=== PATIENT | male | born 1950 | race Caucasian/White ===

== ENCOUNTER 2018-06-17 07:00 | Emergency (ER) | payer MEDICARE, MEDICAID, SELFPAY ==
--- NOTE | 2018-06-17 07:24 | ED.CHESTPAIN ---
HPI - Chest Pain General Chief Complaint: Chest Pain Stated Complaint: nausea, stomach pain, shakiness Time Seen by Provider: 06/17/18 07:24 Related Data Allergies Allergy/AdvReac Type Severity Reaction Status Date / Time No Known Drug Allergies Allergy Unverified 06/17/18 07:20 [facility] Surgical History Status post amputation of extremity Social History Smoking Status: Current some day smoker alcohol intake: current Course Orders Ordered: ED Orders 06/17/18 EKG-12 Lead Stat EKG-12 Lead Stat
[2018-06-17 07:54] VITALS: BP 179/106; PULSE 68; RESP 18; TEMP 36.7; O2SAT 96
--- NOTE | 2018-06-17 08:02 | ED_ITS ---
HPI - Abdominal Pain General Chief Complaint: Abdominal Pain Stated Complaint: nausea, stomach pain, shakiness Time Seen by Provider: 06/17/18 07:24 Source: patient Mode of arrival: ambulatory Limitations: no limitations History of Present Illness HPI narrative: Patient is a 68-year-old male who presents with all lower left abdominal pain which started early this morning. He says that he has a hernia in his left abdomen area. No previous surgeries. He also states that this feels similar to previous diverticulitis attacks. She had a normal bowel movement last night he has no nausea no vomiting or fevers. He has no painful frequent urination no hematuria no flank pain. MD complaint: abdominal pain Related Data Previous Rx's Medication Instructions Recorded ciprofloxacin HCl [Cipro] 500 mg PO BID #14 tab 06/17/18 metronidazole [Flagyl] 500 mg PO TID #21 tab 06/17/18 Allergies Allergy/AdvReac Type Severity Reaction Status Date / Time No Known Drug Allergies Allergy Unverified 06/17/18 07:20 Review of Systems Review of Systems GENERAL: Denies chills, fatigue, malaise, fever, sweats, travel HEENT: Denies sinus pain, ear pain, sore throat, difficulty swallowing, neck pain RESPIRATORY: Denies dyspnea, cough, wheezing, hemoptysis, sputum. CARDIOVASCULAR: Denies chest pain, palpitations, orthopnea, edema GASTROINTESTINAL: See HPI : Denies dysuria, frequency, incontinence, hematuria, urinary retention, flank pain. MUSCULOSKELETAL: Denies weakness, joint pain, or bony pain SKIN: No rash, no erythema, no pruritus NEUROLOGIC: Denies weakness, dizziness, headache, numbness, change in speech, confusion 12 point review of systems is negative except for those stated above and HPI PFSH Medical History Diverticulitis (Acute) GERD (gastroesophageal reflux disease) (Acute) Surgical History Status post amputation of extremity Social History Smoking Status: Current some day smoker alcohol intake: current Exam Initial Vital Signs Initial Vital Signs: Vital Signs Temperature 98.1 F 06/17/18 07:54 Pulse Rate 68 06/17/18 07:54 Respiratory Rate 18 06/17/18 07:54 Blood Pressure 179/106 H 06/17/18 07:54 Pulse Oximetry 96 06/17/18 07:54 GENERAL: Well-appearing, well-nourished and in no acute distress. HEENT: Head atraumatic,EOMI, pupils reactive, face symmetric, moist mucous membranes CARDIOVASCULAR: Regular rate and rhythm without murmurs, rubs or gallops. RESPIRATORY: Breath sounds equal bilaterally, no wheezes rales or rhonchi. ABDOMEN: Soft, mild lower abdominal tenderness without guarding or rebound, no surgical scars no appreciated hernia no inguinal hernia : No CVA tenderness EXTREMITIES: Normal range of motion, no clubbing or edema. Neurovascularly intact NEUROLOGICAL: Alert and oriented x4.Normal gait and speech. Cranial nerves II through XII grossly intact. Good [id number], good [id number], strength equal bilaterally, no dysarthria or aphasia, sensation in tact to soft touch bilaterally, no visual changes, no facial droop SKIN: Warm, dry, no laceration, no petechiae, no rashes or lesions. Course Orders Ordered: ED Orders 06/17/18 08:00 Complete Blood Count AUTO DIFF Stat Comprehensive Metabolic Panel Stat Lipase Stat 06/17/18 08:41 CT abdomen pelvis w con Stat Discontinued Medications Adenosine (Adenocard) 6 mg IV NOW ONE Stop: 06/17/18 07:23 Sodium Chloride (Normal Saline 0.9%) 1,000 mls @ 1,000 mls/hr IV BOLUS ONE Stop: 06/17/18 08:21 Sodium Chloride (Normal Saline 0.9%) 1,000 mls @ 150 mls/hr IV CONT EUNICE Sodium Chloride (Normal Saline 0.9%) 1,000 mls @ 1,000 mls/hr IV CONT EUNICE Last Admin: 06/17/18 08:18 Dose: 1,000 mls/hr Vital Signs - 8 hr 06/17/18 07:54 06/17/18 10:14 Temperature 98.1 F Pulse Rate 68 72 Respiratory Rate 18 13 Blood Pressure 179/106 H 180/110 H Pulse Oximetry 96 MDM - Abdominal Pain Lab Data Attestation: I reviewed the patient's lab results. Result diagrams: 06/17/18 08:00 06/17/18 08:00 Lab Results 06/17/18 06/17/18 Range/Units 08:00 08:00 WBC 9.0 (4.5-11.0) X10^3/uL RBC 4.69 (4.5-5.9) X10^6/uL Hgb 16.5 (13.5-17.5) g/dL Hct 45.1 (41-53) % MCV 96.0 (80-100) fL MCH 35.1 H (26-34) PG MCHC 36.6 H (30-36) % RDW 12.5 (11.6-14.8) % Plt Count 197 (150-400) X10^3/uL Neut % (Auto) 78.3 H (50-75) % Lymph % (Auto) 14.4 L (25-40) % [place] % (Auto) 5.6 (3-14) % Eos % (Auto) 0.8 L (2-4) % Baso % (Auto) 0.9 (0-2) % Neut # (Auto) 7000 H (6402-9573) /uL Sodium 141 (137-145) mmol/L Potassium 4.5 (3.4-5.1) mmol/L Chloride 105 (98-107) mmol/L Carbon Dioxide 27 (22-32) mmol/L BUN 16 (9-20) mg/dL Creatinine 0.90 (0.66-1.25) mg/dL Estimated GFR > 60.0 (>60) mL/min BUN/Creatinine Ratio 17.8 (6-22) Glucose 107 (80-110) mg/dL Calcium 9.4 (8.4-10.2) mg/dL Total Bilirubin 0.7 (0.2-1.3) mg/dL AST 18 (17-59) IU/L ALT 24 (21-72) IU/L Alkaline Phosphatase 68 (38-126) U/L Total Protein 7.2 (6.3-8.2) g/dL Albumin 4.2 (3.5-5.0) g/dL Globulin 3.0 (1.7-4.1) g/dL Albumin/Globulin Ratio 1.4 (1.0-2.8) Lipase 25 (23-300) U/L Point of care testing: Urine Dip Bedside Urine Glucose Negative Bedside Urine Bilirubin - Negative Bedside Urine Ketone - Negative Urine Specific [place] 1.020 Bedside Urine Occult Blood - Negative Bedside Urine pH 6.0 Bedside Urine Protein + 30 Bedside Urine Urobilinogen - Negative Bedside Urine Nitrite - Negative Bedside Urine Leukocytes - Negative Esterase Imaging Data CT scan - abdomen: Radiologist's impression: [address] [address] [address] Scan Report Signed Patient: Anthony Mckeon MR#: [id number] : 1950 Acct:[id number] Age/Sex: 68 / M Date of Service: 06/17/18 Loc: ED Accession Number: [id number] Procedure: CT abdomen pelvis w con Ordering Provider: Rosario Vick D.O. PROCEDURE: CT ABDOMEN PELVIS W CON INDICATIONS: Low abdominal pain x several days TECHNIQUE: After the administration of intravenous contrast, 5 mm thick sections acquired from the diaphragm to the symphysis. 5 mm coronal and sagittal reformats were acquired. For radiation dose reduction, the following was used: automated exposure control, adjustment of mA and/or kV according to patient size. COMPARISON: [facility], CT, ABDOMEN/PELVIS WITH CONTRAST, 08/16/2016, 12: 41. [facility], CT, ABDOMEN/PELVIS WITH CONTRAST, 10/07/2011, 5:05. FINDINGS: Image quality: Excellent. ABDOMEN: Lung bases: Lung bases are clear. Heart size is normal. Solid organs: Liver is normal in size and enhancement, and the liver appears diffusely fatty infiltrated. Gallbladder appears normal. Biliary system is non dilated. Pancreas enhances normally. Spleen is normal in size and enhancement. No adrenal nodules. Kidneys demonstrate normal size and enhancement, without hydronephrosis. Peritoneum and bowel: Bowel loops demonstrate normal wall thickness and caliber. No free fluid or air. Nodes and vessels: No retroperitoneal or mesenteric adenopathy by size criteria. Aorta and inferior vena cava are normal in size. Miscellaneous: No ventral hernias. PELVIS: Genitourinary: Bladder wall thickness is normal. Miscellaneous: No inguinal hernias or adenopathy. Extensive sigmoid diverticulosis, and there is a small degree of edema along the lateral border of the posterior half of the sigmoid colon indicating likelihood of mild acute diverticulitis without peridiverticular abscess.. Bones: No suspicious bony lesions. No vertebral body compression fractures. IMPRESSION: Subtle finding of mild edema along the posterior lateral border of the sigmoid colon where extensive diverticulosis is present and mild acute diverticulitis is suspected, without peridiverticular abscess. Fatty infiltration prominent throughout the liver. No biliary distention or gallstones found. Dictated by: Mark Pavon M.D. on 06/17/2018 at 8:54 Discharge Plan Departure Patient Disposition: Home Clinical Impression: Diverticulitis Discharge Date/Time: 06/17/18 10:16 Interventions: ED Discharge Assessment Last Done: 06/17/18 10:14 Instructions: Diverticulitis Activity Restrictions/Additional Instructions: *You have been diagnosed with diverticulitis *What to do: Recommend gentle diet or clear liquid diet for the next off 1-2 days *Continue to take medications as directed-medications have been faxed to [facility] at your request Cipro 500 mg twice a day for 1 week FLAGYL 500 MG 3 TIMES A DAY FOR 1 WEEK Take Tylenol and/or Motrin as needed as directed for pain *Follow up with your primary care provider in 2-3 days *Return to ER if you should have increasing pain, fever or any new, worsening or concerning symptoms Prescriptions: New metronidazole [Flagyl] 500 mg tablet 500 mg PO TID Qty: 21 RF: 0 ciprofloxacin HCl [Cipro] 500 mg tablet 500 mg PO BID Qty: 14 RF: 0
[2018-06-17] MEDS: SODIUM CHLORIDE 0.9% 1,000 ML 1000 ML IV (08:18)
[2018-06-17 08:29] LABS: Alanine Aminotransferase 24 IU/L (21-72); Albumin 4.2 g/dL (3.5-5.0); Albumin Globulin Ratio 1.4 (1.0-2.8); Alkaline Phosphatase 68 U/L (38-126); Aspartate Aminotransferase 18 IU/L (17-59); BUN Creatinine Ratio 17.8 (6-22); Bilirubin Total 0.7 mg/dL (0.2-1.3); Blood Urea Nitrogen 16 mg/dL (9-20); Calcium 9.4 mg/dL (8.4-10.2); Carbon Dioxide 27 mmol/L (22-32); Chloride 105 mmol/L (98-107); Estimated Glomerular Filt Rate > 60.0 mL/min (>60); Glucose 107 mg/dL (80-110); HEMOLYSIS < 15 (0-50); Lipase 25 U/L (23-300); Potassium 4.5 mmol/L (3.4-5.1); Sodium 141 mmol/L (137-145); Total Protein 7.2 g/dL (6.3-8.2)
[2018-06-17 08:33] LABS: Add Manual Diff / Slide Review NO; Basophils Percent Auto 0.9 % (0-2); Eosinophils Percent Auto 0.8 % (2-4); Hematocrit 45.1 % (41-53); Hemoglobin 16.5 g/dL (13.5-17.5); Lymphocytes Percent Auto 14.4 % (25-40); Mean Corpuscular HGB Conc 36.6 % (30-36); Mean Corpuscular Hemoglobin 35.1 PG (26-34); Monocytes Percent Auto 5.6 % (3-14); Neutrophils Absolute Auto 7000 /uL (3000-5900); Neutrophils Percent Auto 78.3 % (50-75); Platelet Count 197 X10^3/uL (150-400); Red Blood Cell Count 4.69 X10^6/uL (4.5-5.9); Red Cell Distribution Width 12.5 % (11.6-14.8)
--- NOTE | 2018-06-17 08:41 | DI.CT.S_ITS ---
PROCEDURE: CT ABDOMEN PELVIS W CON INDICATIONS: Low abdominal pain x several days TECHNIQUE: After the administration of intravenous contrast, 5 mm thick sections acquired from the diaphragm to the symphysis. 5 mm coronal and sagittal reformats were acquired. For radiation dose reduction, the following was used: automated exposure control, adjustment of mA and/or kV according to patient size. COMPARISON: [facility], CT, ABDOMEN/PELVIS WITH CONTRAST, 08/16/2016, 12:41. [facility], CT, ABDOMEN/PELVIS WITH CONTRAST, 10/07/2011, 5:05. FINDINGS: Image quality: Excellent. ABDOMEN: Lung bases: Lung bases are clear. Heart size is normal. Solid organs: Liver is normal in size and enhancement, and the liver appears diffusely fatty infiltrated. Gallbladder appears normal. Biliary system is non dilated. Pancreas enhances normally. Spleen is normal in size and enhancement. No adrenal nodules. Kidneys demonstrate normal size and enhancement, without hydronephrosis. Peritoneum and bowel: Bowel loops demonstrate normal wall thickness and caliber. No free fluid or air. Nodes and vessels: No retroperitoneal or mesenteric adenopathy by size criteria. Aorta and inferior vena cava are normal in size. Miscellaneous: No ventral hernias. PELVIS: Genitourinary: Bladder wall thickness is normal. Miscellaneous: No inguinal hernias or adenopathy. Extensive sigmoid diverticulosis, and there is a small degree of edema along the lateral border of the posterior half of the sigmoid colon indicating likelihood of mild acute diverticulitis without peridiverticular abscess.. Bones: No suspicious bony lesions. No vertebral body compression fractures. IMPRESSION: Subtle finding of mild edema along the posterior lateral border of the sigmoid colon where extensive diverticulosis is present and mild acute diverticulitis is suspected, without peridiverticular abscess. Fatty infiltration prominent throughout the liver. No biliary distention or gallstones found. Dictated by: Mark Pavon M.D. on 06/17/2018 at 8:54 Approved by: Mark Pavon M.D. on 06/17/2018 at 8:57
--- NOTE | 2018-06-17 08:57 | ED.ABDPAIN ---
HPI - Abdominal Pain General Chief Complaint: Abdominal Pain Stated Complaint: nausea, stomach pain, shakiness Time Seen by Provider: 06/17/18 07:24 Related Data Home Medications Medication Instructions Recorded Confirmed No Known Home Medications 06/17/18 06/17/18 Allergies Allergy/AdvReac Type Severity Reaction Status Date / Time No Known Drug Allergies Allergy Unverified 06/17/18 07:20 PFSH Surgical History Status post amputation of extremity Social History Smoking Status: Current some day smoker alcohol intake: current Exam Narrative Exam Narrative: Initial Vital Signs Initial Vital Signs: Vital Signs Temperature 98.1 F 06/17/18 07:54 Pulse Rate 68 06/17/18 07:54 Respiratory Rate 18 06/17/18 07:54 Blood Pressure 179/106 H 06/17/18 07:54 Pulse Oximetry 96 06/17/18 07:54 Const General: cooperative Course Orders Ordered: ED Orders 06/17/18 EKG-12 Lead Stat EKG-12 Lead Stat 06/17/18 08:00 Complete Blood Count AUTO DIFF Stat Comprehensive Metabolic Panel Stat Lipase Stat 06/17/18 08:41 CT abdomen pelvis w con Stat Sodium Chloride (Normal Saline 0.9%) 1,000 mls @ 1,000 mls/hr IV CONT EUNICE Last Admin: 06/17/18 08:18 Dose: 1,000 mls/hr Discontinued Medications Adenosine (Adenocard) 6 mg IV NOW ONE Stop: 06/17/18 07:23 Sodium Chloride (Normal Saline 0.9%) 1,000 mls @ 1,000 mls/hr IV BOLUS ONE Stop: 06/17/18 08:21 Sodium Chloride (Normal Saline 0.9%) 1,000 mls @ 150 mls/hr IV CONT EUNICE Vital Signs - 8 hr 06/17/18 07:54 Temperature 98.1 F Pulse Rate 68 Respiratory Rate 18 Blood Pressure 179/106 H Pulse Oximetry 96 MDM - Abdominal Pain Lab Data Result diagrams: 06/17/18 08:00 06/17/18 08:00 Lab Results 06/17/18 06/17/18 Range/Units 08:00 08:00 WBC 9.0 (4.5-11.0) X10^3/uL RBC 4.69 (4.5-5.9) X10^6/uL Hgb 16.5 (13.5-17.5) g/dL Hct 45.1 (41-53) % MCV 96.0 (80-100) fL MCH 35.1 H (26-34) PG MCHC 36.6 H (30-36) % RDW 12.5 (11.6-14.8) % Plt Count 197 (150-400) X10^3/uL Neut % (Auto) 78.3 H (50-75) % Lymph % (Auto) 14.4 L (25-40) % [place] % (Auto) 5.6 (3-14) % Eos % (Auto) 0.8 L (2-4) % Baso % (Auto) 0.9 (0-2) % Neut # (Auto) 7000 H (3278-1168) /uL Sodium 141 (137-145) mmol/L Potassium 4.5 (3.4-5.1) mmol/L Chloride 105 (98-107) mmol/L Carbon Dioxide 27 (22-32) mmol/L BUN 16 (9-20) mg/dL Creatinine 0.90 (0.66-1.25) mg/dL Estimated GFR > 60.0 (>60) mL/min BUN/Creatinine Ratio 17.8 (6-22) Glucose 107 (80-110) mg/dL Calcium 9.4 (8.4-10.2) mg/dL Total Bilirubin 0.7 (0.2-1.3) mg/dL AST 18 (17-59) IU/L ALT 24 (21-72) IU/L Alkaline Phosphatase 68 (38-126) U/L Total Protein 7.2 (6.3-8.2) g/dL Albumin 4.2 (3.5-5.0) g/dL Globulin 3.0 (1.7-4.1) g/dL Albumin/Globulin Ratio 1.4 (1.0-2.8) Lipase 25 (23-300) U/L Point of care testing: Urine Dip Bedside Urine Glucose Negative Bedside Urine Bilirubin - Negative Bedside Urine Ketone - Negative Urine Specific [place] 1.020 Bedside Urine Occult Blood - Negative Bedside Urine pH 6.0 Bedside Urine Protein + 30 Bedside Urine Urobilinogen - Negative Bedside Urine Nitrite - Negative Bedside Urine Leukocytes - Negative Esterase Discharge Plan Departure Prescriptions: No Action No Known Home Medications RF: 0
[2018-06-17 10:14] VITALS: BP 180/110; PULSE 72; RESP 13
--- NOTE | 2018-08-05 13:09 | PC.NURSE ---
pt dc at 1014, iv dc'd and 1000cc fluids infused. (late entry)
== END 2018-06-17 10:16 | disposition home or self-care (01) ==
PROVIDERS: Emergency Provider Emergency Medicine; Family Provider Family Medicine; PCP Family Medicine
DX: K57.92 Diverticulitis of intestine, part unspecified, without perforation or abscess without bleeding (principal)
CPT/HCPCS: 36591; 74177; 80053; 81003; 83690; 85025; 93005; 96360; 96361; 99282; 99283; 99285; J1885; Q9967

== ENCOUNTER 2018-06-17 15:42 | Emergency (ER) | payer MEDICARE, SELFPAY ==
[2018-06-17 16:08] VITALS: BP 134/92; PULSE 81; RESP 22; TEMP 37.1; O2SAT 96
--- NOTE | 2018-06-17 17:00 | ED.ABDPAIN ---
HPI - Abdominal Pain General Chief Complaint: Abdominal Pain Stated Complaint: stomach pain Time Seen by Provider: 06/17/18 16:59 Related Data Previous Rx's Medication Instructions Recorded ciprofloxacin HCl [Cipro] 500 mg PO BID #14 tab 06/17/18 metronidazole [Flagyl] 500 mg PO TID #21 tab 06/17/18 Allergies Allergy/AdvReac Type Severity Reaction Status Date / Time No Known Drug Allergies Allergy Unverified 06/17/18 07:20 PFSH Medical History Diverticulitis (Acute) GERD (gastroesophageal reflux disease) (Acute) Surgical History Status post amputation of extremity Social History Smoking Status: Current some day smoker alcohol intake: current Exam Initial Vital Signs Initial Vital Signs: Vital Signs Temperature 98.8 F 06/17/18 16:08 Pulse Rate 81 06/17/18 16:08 Respiratory Rate 22 06/17/18 16:08 Blood Pressure 134/92 H 06/17/18 16:08 Pulse Oximetry 96 06/17/18 16:08 Scores qSOFA Altered Mental Status (GCS <15): No Respiratory rate greater than/equal to 22: No Systolic blood pressure less than or equal to 100: Yes 0-1 Not High Risk 1-3 High risk Course Vital Signs - 8 hr 06/17/18 16:08 Temperature 98.8 F Pulse Rate 81 Respiratory Rate 22 Blood Pressure 134/92 H Pulse Oximetry 96 Discharge Plan Departure Prescriptions: No Action metronidazole [Flagyl] 500 mg tablet 500 mg PO TID Qty: 21 RF: 0 ciprofloxacin HCl [Cipro] 500 mg tablet 500 mg PO BID Qty: 14 RF: 0
--- NOTE | 2018-06-17 17:11 | ED_ITS ---
HPI - Abdominal Pain <Ayla Bradley PA-C - Last Filed: 06/17/18 22:26> General Chief Complaint: Abdominal Pain Stated Complaint: stomach pain Time Seen by Provider: 06/17/18 16:59 Source: patient Mode of arrival: ambulatory Limitations: no limitations History of Present Illness HPI narrative: This 68-year-old male returns to the ED due to increased nausea and also left lower quadrant pain. He was seen here earlier today and diagnosed with diverticulitis. 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 He states that he had a bowel movement at home which was normal consistency though somewhat darker than usual (not black and he did not see any blood), and after that pain seemed increased. He also thinks nausea increased after this as well as his medications, but has kept them down. He states when his pain was worse right after the bowel movement he felt chilled and sweaty, but that has resolved now. He has not had any known fever at home. He has not had any new symptoms such as chest pain, dyspnea, or pain in the extremities. He has not had any urinary symptoms. He was seen at the walk-in clinic recently and diagnosed with a possible left-sided hernia Related Data Previous Rx's Medication Instructions Recorded ciprofloxacin HCl [Cipro] 500 mg PO BID #14 tab 06/17/18 metronidazole [Flagyl] 500 mg PO TID #21 tab 06/17/18 ondansetron [Zofran ODT] 4 mg PO Q8H PRN #12 tab 06/17/18 oxycodone-acetaminophen [Percocet] 1 tab PO Q4-6H PRN #7 tab 06/17/18 Allergies Allergy/AdvReac Type Severity Reaction Status Date / Time No Known Drug Allergies Allergy Unverified 06/17/18 07:20 Review of Systems <Ayla Bradley PA-C - Last Filed: 06/17/18 22:26> Review of Systems All systems reviewed & are unremarkable except as noted in HPI and below Exam <Ayla Bradley PA-C - Last Filed: 06/17/18 22:26> Narrative Exam Narrative: GENERAL APPEARANCE: Patient sitting comfortably, in no distress. HEENT: PERRL, EOMI, no scleral icterus NECK: Supple LUNGS: Clear to auscultation bilaterally. HEART: Rate and rhythm regular, normal S1 and S2, no S3 or S4. ABDOMEN: Soft, moderate left lower quadrant tenderness without guarding or rebound nondistended, bowel sounds present x 4 quadrants, no masses palpable, no hepatosplenomegaly. EXTREMITIES: No edema, no calf tenderness DERMATOLOGIC: No jaundice or exanthem NEUROLOGIC: Alert and oriented with normal speech and coordination Initial Vital Signs Initial Vital Signs: Vital Signs Temperature 98.8 F 06/17/18 16:08 Pulse Rate 81 06/17/18 16:08 Respiratory Rate 22 06/17/18 16:08 Blood Pressure 134/92 H 06/17/18 16:08 Pulse Oximetry 96 06/17/18 16:08 <Rosario Vick DO - Last Filed: 06/18/18 13:03> Initial Vital Signs Initial Vital Signs: Vital Signs Temperature 98.8 F 06/17/18 16:08 Pulse Rate 81 06/17/18 16:08 Respiratory Rate 22 06/17/18 16:08 Blood Pressure 134/92 H 06/17/18 16:08 Pulse Oximetry 96 06/17/18 16:08 Course <Ayla Bradley PA-C - Last Filed: 06/17/18 22:26> Additional Information: Patient reports feeling significantly improved after medications. He has taken percocet in the past without SEs, but we did discuss concern for increased constipation. He agree to return if any acutely worsening symptoms again and will stay in [facility] Dr. Vick aware of his return and agreeable with treatment plan. Orders Ordered: Discontinued Medications Ketorolac Tromethamine (Toradol) 60 mg IM NOW ONE Stop: 06/17/18 17:29 Last Admin: 06/17/18 17:34 Dose: 60 mg Ondansetron HCl (Zofran Odt) 4 mg PO NOW ONE Stop: 06/17/18 17:29 Last Admin: 06/17/18 17:33 Dose: 4 mg Oxycodone/Acetaminophen (Percocet 5/325) 1 tab PO NOW ONE Stop: 06/17/18 17:29 Last Admin: 06/17/18 17:33 Dose: 1 tab Vital Signs - 8 hr 06/17/18 16:08 06/17/18 17:30 06/17/18 18:30 Temperature 98.8 F 98.9 F Pulse Rate 81 71 77 Respiratory Rate 22 Blood Pressure 134/92 H Blood Pressure [Left Arm] 164/99 H 140/102 H Pulse Oximetry 96 96 96 06/17/18 19:14 Temperature Pulse Rate 74 Respiratory Rate 16 Blood Pressure 126/84 H Blood Pressure [Left Arm] Pulse Oximetry 98 <Rosariosylvester Vick, - Last Filed: 06/18/18 13:03> Orders Ordered: Discontinued Medications Ketorolac Tromethamine (Toradol) 60 mg IM NOW ONE Stop: 06/17/18 17:29 Last Admin: 06/17/18 17:34 Dose: 60 mg Ondansetron HCl (Zofran Odt) 4 mg PO NOW ONE Stop: 06/17/18 17:29 Last Admin: 06/17/18 17:33 Dose: 4 mg Oxycodone/Acetaminophen (Percocet 5/325) 1 tab PO NOW ONE Stop: 06/17/18 17:29 Last Admin: 06/17/18 17:33 Dose: 1 tab Vital Signs - 8 hr 06/17/18 16:08 06/17/18 17:30 06/17/18 18:30 Temperature 98.8 F 98.9 F Pulse Rate 81 71 77 Respiratory Rate 22 Blood Pressure 134/92 H Blood Pressure [Left Arm] 164/99 H 140/102 H Pulse Oximetry 96 96 96 06/17/18 19:14 Temperature Pulse Rate 74 Respiratory Rate 16 Blood Pressure 126/84 H Blood Pressure [Left Arm] Pulse Oximetry 98 Discharge Plan Departure Patient Disposition: Home Clinical Impression: Diverticulitis, Nausea Discharge Date/Time: 06/17/18 19:14 Interventions: ED Discharge Assessment Last Done: 06/17/18 19:14 Activity Restrictions/Additional Instructions: Please return as we talked about if you have any acutely worsening symptoms again, or new symptoms such as fever. Please take the nausea medication as needed. You may want to use this before your antibiotics. Take Advil every 8 hr as needed for pain and you can at the prescription oxycodone/acetaminophen as needed. Remember that this can make you sleepy so you should not drive, and it can also cause constipation. Please start taking MiraLax once daily since you were somewhat constipated earlier today, and drink plenty of water to help with this. Please follow up with your PCP in the next few days for recheck Prescriptions: New oxycodone-acetaminophen [Percocet] 5-325 mg tablet 1 tab PO Q4-6H PRN (Reason: abdominal pain) Qty: 7 RF: 0 ondansetron [Zofran ODT] 4 mg tablet,disintegrating 4 mg PO Q8H PRN (Reason: nausea and vomiting) Qty: 12 RF: 0 No Action metronidazole [Flagyl] 500 mg tablet 500 mg PO TID Qty: 21 RF: 0 ciprofloxacin HCl [Cipro] 500 mg tablet 500 mg PO BID Qty: 14 RF: 0 Referrals: Salomón Bynum MD [Primary Care Provider] - <Rosario Vick DO - Last Filed: 06/18/18 13:03> Cosign ED Attending Armaanature Attestation: I was immediately available in the department for consultation. Documentation has been reviewed. I agree with assessment and plan.
[2018-06-17 17:30] VITALS: BP 164/99; PULSE 71; O2SAT 96
[2018-06-17] MEDS: ONDANSETRON 4 MG ODT PO (17:33)
[2018-06-17] MEDS: OXYCODONE/ACETAMINOPHEN 5/325 TABLET 1 TAB PO (17:33)
[2018-06-17] MEDS: KETOROLAC 60 MG/2 ML VIAL IM (17:34)
[2018-06-17 18:30] VITALS: BP 140/102; PULSE 77; TEMP 37.2; O2SAT 96
[2018-06-17 19:14] VITALS: BP 126/84; PULSE 74; RESP 16; O2SAT 98
== END 2018-06-17 19:14 | disposition home or self-care (01) ==
PROVIDERS: Emergency Provider Internal Medicine; Family Provider Family Medicine; PCP Family Medicine
DX: R10.9 Unspecified abdominal pain (principal)
CPT/HCPCS: J1885

== ENCOUNTER 2018-06-18 19:08 | Emergency (ER) | payer MEDICARE, SELFPAY ==
[2018-06-18 19:19] VITALS: BP 146/90; PULSE 72; RESP 22; TEMP 36.6; O2SAT 97; BMI 321.3
--- NOTE | 2018-06-18 21:17 | PC.NURSE ---
When I triaged him he stated he had similar episodes of anxiety that usually resolved by walking them off.
== END 2018-06-18 21:18 | disposition left against medical advice (07) ==
PROVIDERS: Family Provider Family Medicine; PCP Family Medicine
DX: F41.9 Anxiety disorder, unspecified (principal)
CPT/HCPCS: 99281; 99283

== ENCOUNTER 2018-06-19 07:42 | Emergency (ER) | payer MEDICARE, MEDICAID, SELFPAY ==
[2018-06-19 07:49] VITALS: BP 145/92; PULSE 81; RESP 18; O2SAT 100; BMI 28.3
--- NOTE | 2018-06-19 07:58 | ED.ABDPAIN ---
HPI - Abdominal Pain General Chief Complaint: Abdominal Pain Stated Complaint: 'my stomach' Time Seen by Provider: 06/19/18 07:58 Source: patient Mode of arrival: ambulatory Limitations: no limitations History of Present Illness HPI narrative: Patient is a 68-year-old male who presents with nausea. He was seen evaluated here twice on the 06/17/2018. He was diagnosed with diverticulitis or her Cipro and Flagyl. I yesterday he felt like he was doing well this morning he took his Cipro Flagyl and sertraline together and he immediately felt nauseated. He has not vomited he has not had fever. He says it has been constipated but no bloody bowel movements. He has been able to keep some liquids down and he is urinating frequently. MD complaint: abdominal pain and other (Nausea) Related Data Previous Rx's Medication Instructions Recorded ciprofloxacin HCl [Cipro] 500 mg PO BID #14 tab 06/17/18 metronidazole [Flagyl] 500 mg PO TID #21 tab 06/17/18 ondansetron [Zofran ODT] 4 mg PO Q8H PRN #12 tab 06/17/18 oxycodone-acetaminophen [Percocet] 1 tab PO Q4-6H PRN #7 tab 06/17/18 alprazolam [Xanax] 1 mg PO .q day PRN #2 tab 06/19/18 Allergies Allergy/AdvReac Type Severity Reaction Status Date / Time No Known Drug Allergies Allergy Verified 06/18/18 19:22 Review of Systems Review of Systems All systems reviewed & are unremarkable except as noted in HPI and below Constitutional Denies chills, Denies fever(s), Denies lethargy and Denies weakness Eyes Denies change in vision, Denies eye discharge, Denies irritation and Denies loss of vision Cardiovascular Denies chest pain, Denies irregular heart rhythm, Denies lightheadedness, Denies palpitations, Denies dyspnea, Denies dyspnea on exertion and Denies orthopnea Respiratory Denies cough, Denies dyspnea, Denies dyspnea on exertion and Denies wheezing Gastrointestinal Gastrointestinal: Denies abdominal pain, Reports change in bowel habits, Denies diarrhea, Reports nausea and Denies vomiting Musculoskeletal Denies back pain, Denies muscle weakness, Denies numbness and Denies tingling Integumentary/Breasts Denies pruritus, Denies erythema, Denies rash and Denies wounds Neurologic Denies loss of vision, Denies numbness, Denies tingling and Denies weakness Endocrine Denies palpitations Allergic/Immunologic Denies wheezing [facility] Medical History Depression (09/11/11) Gastroesophageal reflux disease without esophagitis (07/03/16) Neuropathy (07/03/16) Diverticulitis (Acute) GERD (gastroesophageal reflux disease) (Acute) Surgical History Status post amputation of extremity Social History Smoking Status: Current some day smoker alcohol intake: current Exam Initial Vital Signs Initial Vital Signs: Vital Signs Pulse Rate 81 06/19/18 07:49 Respiratory Rate 18 06/19/18 07:49 Blood Pressure 145/92 H 06/19/18 07:49 Pulse Oximetry 100 06/19/18 07:49 GENERAL: Patient appears in pain moving all over bad but states he is not in pain only nauseated HEENT: Head atraumatic,EOMI, pupils reactive CARDIOVASCULAR: Regular rate and rhythm without murmurs, rubs or gallops. RESPIRATORY: Breath sounds equal bilaterally, no wheezes rales or rhonchi. ABDOMEN: Soft, no distension no localization of pain or tenderness no guarding no rebound : No CVA tenderness EXTREMITIES: Normal range of motion, no clubbing or edema. Neurovascularly intact NEUROLOGICAL: Alert and oriented x4.Normal gait and speech. Cranial nerves II through XII grossly intact. SKIN: Warm, dry, no laceration, no petechiae, no rashes or lesions. Course Orders Ordered: ED Orders 06/19/18 08:05 Complete Blood Count AUTO DIFF Stat Comprehensive Metabolic Panel Stat Lipase Stat Discontinued Medications Sodium Chloride (Normal Saline 0.9%) 1,000 mls @ 1,000 mls/hr IV CONT EUNICE Last Infusion: 06/19/18 10:34 Dose: 0 mls/hr Admin: 06/19/18 08:10 Dose: 1,000 mls/hr Ketorolac Tromethamine (Toradol) 30 mg IV NOW ONE Stop: 06/19/18 10:28 Last Admin: 06/19/18 10:29 Dose: 30 mg Metoclopramide HCl (Reglan) 5 mg IV NOW ONE Stop: 06/19/18 09:34 Last Admin: 06/19/18 10:20 Dose: Not Given Morphine Sulfate (Morphine) 2 mg IV NOW ONE Stop: 06/19/18 11:00 Last Admin: 06/19/18 11:03 Dose: 2 mg Ondansetron HCl (Zofran) 4 mg IV NOW ONE Stop: 06/19/18 08:08 Last Admin: 06/19/18 08:10 Dose: 4 mg Ondansetron HCl (Zofran) 4 mg IV NOW ONE Stop: 06/19/18 10:28 Last Admin: 06/19/18 10:29 Dose: 4 mg Vital Signs - 8 hr 06/19/18 07:49 06/19/18 08:18 06/19/18 10:00 Pulse Rate 81 71 83 Respiratory Rate 18 17 Blood Pressure 145/92 H Blood Pressure [Right Arm] 161/98 H 158/100 H Pulse Oximetry 100 100 100 06/19/18 11:10 Pulse Rate 86 Respiratory Rate Blood Pressure Blood Pressure [Right Arm] 141/99 H Pulse Oximetry 99 MDM - Abdominal Pain Lab Data Result diagrams: 06/19/18 08:05 06/19/18 08:05 Lab Results 06/19/18 06/19/18 Range/Units 08:05 08:05 WBC 10.8 (4.5-11.0) X10^3/uL RBC 4.82 (4.5-5.9) X10^6/uL Hgb 17.0 (13.5-17.5) g/dL Hct 47.1 (41-53) % MCV 97.7 (80-100) fL MCH 35.2 H (26-34) PG MCHC 36.1 H (30-36) % RDW 12.3 (11.6-14.8) % Plt Count 199 (150-400) X10^3/uL Neut % (Auto) 75.8 H (50-75) % Lymph % (Auto) 15.2 L (25-40) % Addison % (Auto) 7.9 (3-14) % Eos % (Auto) 0.4 L (2-4) % Baso % (Auto) 0.7 (0-2) % Neut # (Auto) 8200 H (4052-5269) /uL Sodium 140 (137-145) mmol/L Potassium 4.1 (3.4-5.1) mmol/L Chloride 102 (98-107) mmol/L Carbon Dioxide 24 (22-32) mmol/L BUN 19 (9-20) mg/dL Creatinine 1.50 H (0.66-1.25) mg/dL Estimated GFR 46.8 L (>60) mL/min BUN/Creatinine Ratio 12.7 (6-22) Glucose 105 (80-110) mg/dL Calcium 9.8 (8.4-10.2) mg/dL Total Bilirubin 1.3 (0.2-1.3) mg/dL AST 30 (17-59) IU/L ALT 23 (21-72) IU/L Alkaline Phosphatase 67 (38-126) U/L Total Protein 7.7 (6.3-8.2) g/dL Albumin 4.4 (3.5-5.0) g/dL Globulin 3.3 (1.7-4.1) g/dL Albumin/Globulin Ratio 1.3 (1.0-2.8) Lipase 20 L (23-300) U/L Point of care testing: Urine Dip Bedside Urine Glucose Negative Bedside Urine Bilirubin - Negative Bedside Urine Ketone +++ 80 Urine Specific [place] 1.020 Bedside Urine Occult Blood - Negative Bedside Urine pH 6.0 Bedside Urine Protein + 30 Bedside Urine Urobilinogen - Negative Bedside Urine Nitrite - Negative Bedside Urine Leukocytes + 70 Esterase MDM Narrative Medical decision making narrative: Blood work today is relatively unchanged from prior. Initially just felt nauseated after combining on antibiotics with the sertraline. He continues to have some abdominal cramping and a bowel movement morning which was normal. He has a history of anxiety and feels like his anxiety starting to act up again. The CT from 2 days ago showed early mild acute diverticulitis without any abscess. His abdomen is reexamined he continues to have some mild pain but does not seem to have an acute abdomen. This time I do not think he needs repeat imaging. He was able to get a ride home and is feeling better after morphine Discharge Plan Departure Patient Disposition: Home Clinical Impression: Diverticulitis Discharge Date/Time: 06/19/18 11:04 Interventions: ED Discharge Assessment Last Done: 06/19/18 11:04 Instructions: Diverticulitis, Clear Liquid Diet Activity Restrictions/Additional Instructions: *You have been diagnosed with diverticulitis *What to do: Expect to have some pain and cramping with the diverticulitis however if it becomes severe than return the ED *Continue to take medications as directed Continue antibiotics as prescribed Zofran every 4-6 hours if needed for nausea or vomiting especially prior to medications that make you nauseated *Follow up with your primary care provider in 2-3 days *Return to ER if you should have fever, pain unbearable or any new, worsening or concerning symptoms Prescriptions: New alprazolam [Xanax] 1 mg tablet 1 mg PO .q day PRN (Reason: anxiety) Qty: 2 RF: 0 No Action oxycodone-acetaminophen [Percocet] 5-325 mg tablet 1 tab PO Q4-6H PRN (Reason: abdominal pain) Qty: 7 RF: 0 ondansetron [Zofran ODT] 4 mg tablet,disintegrating 4 mg PO Q8H PRN (Reason: nausea and vomiting) Qty: 12 RF: 0 metronidazole [Flagyl] 500 mg tablet 500 mg PO TID Qty: 21 RF: 0 ciprofloxacin HCl [Cipro] 500 mg tablet 500 mg PO BID Qty: 14 RF: 0
[2018-06-19] MEDS: SODIUM CHLORIDE 0.9% 1,000 ML 1000 ML IV (08:10)
[2018-06-19] MEDS: ONDANSETRON 4 MG/2 ML INJ IV ×2 (08:10→10:29)
[2018-06-19 08:18] VITALS: BP 161/98; PULSE 71; RESP 17; O2SAT 100
[2018-06-19 08:39] LABS: Add Manual Diff / Slide Review NO; Basophils Percent Auto 0.7 % (0-2); Eosinophils Percent Auto 0.4 % (2-4); Hematocrit 47.1 % (41-53); Lymphocytes Percent Auto 15.2 % (25-40); Mean Corpuscular HGB Conc 36.1 % (30-36); Mean Corpuscular Hemoglobin 35.2 PG (26-34); Mean Corpuscular Volume 97.7 fL (80-100); Monocytes Percent Auto 7.9 % (3-14); Neutrophils Absolute Auto 8200 /uL (3000-5900); Neutrophils Percent Auto 75.8 % (50-75); Platelet Count 199 X10^3/uL (150-400); Red Blood Cell Count 4.82 X10^6/uL (4.5-5.9); Red Cell Distribution Width 12.3 % (11.6-14.8); White Blood Cell Count 10.8 X10^3/uL (4.5-11.0)
[2018-06-19 08:45] LABS: Alanine Aminotransferase 23 IU/L (21-72); Albumin 4.4 g/dL (3.5-5.0); Albumin Globulin Ratio 1.3 (1.0-2.8); Alkaline Phosphatase 67 U/L (38-126); Aspartate Aminotransferase 30 IU/L (17-59); BUN Creatinine Ratio 12.7 (6-22); Bilirubin Total 1.3 mg/dL (0.2-1.3); Blood Urea Nitrogen 19 mg/dL (9-20); Calcium 9.8 mg/dL (8.4-10.2); Carbon Dioxide 24 mmol/L (22-32); Chloride 102 mmol/L (98-107); Estimated Glomerular Filt Rate 46.8 mL/min (>60); Globulin 3.3 g/dL (1.7-4.1); Glucose 105 mg/dL (80-110); HEMOLYSIS < 15 (0-50); Lipase 20 U/L (23-300); Potassium 4.1 mmol/L (3.4-5.1); Sodium 140 mmol/L (137-145); Total Protein 7.7 g/dL (6.3-8.2)
[2018-06-19 10:00] VITALS: BP 158/100; PULSE 83; O2SAT 100
[2018-06-19] MEDS: KETOROLAC 60 MG/2 ML VIAL 30 MG IV (10:29)
[2018-06-19] MEDS: MORPHINE 2 MG/ML INJ IV (11:03)
[2018-06-19 11:10] VITALS: BP 141/99; PULSE 86; O2SAT 99
--- NOTE | 2018-07-05 20:02 | PC.NURSE ---
pt dcd, iv dc's Normal saline fluids infused 1000 cc,infused at 1100, upon dc
== END 2018-06-19 11:04 | disposition home or self-care (01) ==
PROVIDERS: Emergency Provider Emergency Medicine; Family Provider Family Medicine; PCP Family Medicine
DX: K57.92 Diverticulitis of intestine, part unspecified, without perforation or abscess without bleeding (principal)
CPT/HCPCS: 36591; 80053; 81003; 83690; 85025; 96361; 96374; 96375; 96376; 99283; 99284; J1885; J2270; J2405

== ENCOUNTER → 2019-02-02 13:33 | Outpatient (CLI) | payer MEDICARE, MEDICAID, SELFPAY ==
--- NOTE | 2019-02-02 16:12 | DI.US.S_ITS ---
PROCEDURE: US ABDOMEN LIMITED INDICATIONS: Rule out hernia/incarceration TECHNIQUE: Real-time focused scanning was performed of the abdomen, with image documentation. COMPARISON: None. FINDINGS: Ultrasound examination a left lower quadrant abdomen shows no discrete soft tissue mass or wall defect. No visible herniation is seen. IMPRESSION: No evidence of abdominal wall defect or hernia. No soft tissue mass or fluid collection. Dictated by: Alirio Henderson M.D. on 02/02/2019 at 16:59 Approved by: Alirio Henderson M.D. on 02/02/2019 at 17:00
== END ==
PROVIDERS: Family Provider Family Medicine; PCP Family Medicine; Visit Provider Nurse Practitioner
DX: R19.04 Left lower quadrant abdominal swelling, mass and lump (principal); R10.32 Left lower quadrant pain
CPT/HCPCS: 76705

== ENCOUNTER 2019-04-07 18:40 | Emergency (ER) | payer MEDICARE, MEDICAID, SELFPAY ==
--- NOTE | 2019-04-07 18:44 | ED_ITS ---
HPI - Abdominal Pain General Chief Complaint: Nausea/Vomiting/Diarrhea Stated Complaint: STOMACH PAIN NAUSEA Time Seen by Provider: 04/07/19 18:43 Source: patient Mode of arrival: ambulatory Limitations: no limitations History of Present Illness HPI narrative: Patient is a 69-year-old male here for evaluation of several hours of lower abdominal pain. He does state that it is midline and left lower quadrant. He states that he does have a history of diverticulitis and this feels somewhat like that however is not exactly the same. No vomiting. Does have nausea. No change in bowel habits. No urinary symptoms. No prior history of abdominal surgeries. He states that he has had pain like this in the past th at has gone away on its own after several hours of this pain has not. No fevers. Has not tried anything for symptoms prior to arrival. Related Data Previous Rx's Medication Instructions Recorded fluoxetine 20 mg capsule 20 mg PO DAILY #30 cap 02/02/19 tizanidine 2 mg tablet 2 mg PO BEDTIME PRN #20 tab 02/04/19 ondansetron 4 mg PO Q6H PRN #7 tab 04/07/19 Allergies Allergy/AdvReac Type Severity Reaction Status Date / Time No Known Drug Allergies Allergy Verified 04/07/19 19:03 Review of Systems Constitutional Denies fever(s) Cardiovascular Denies chest pain and Denies dyspnea Respiratory Denies dyspnea Gastrointestinal Gastrointestinal: Reports abdominal pain, Denies change in stool character, Reports nausea and Denies vomiting Genitourinary Denies dysuria Musculoskeletal Denies myalgias and Denies arthralgias Integumentary/Breasts Denies rash Neurologic Denies behavioral changes Psychiatric Denies behavioral changes Hematologic/Lymphatic Denies easy bleeding and Denies easy bruising [facility] Medical History Depression (09/11/11) Gastroesophageal reflux disease without esophagitis (07/03/16) Neuropathy (07/03/16) Back pain (Acute) HTN (hypertension) (Acute) Hearing loss (Acute) Diverticulitis (Acute) GERD (gastroesophageal reflux disease) (Acute) Surgical History Status post amputation of extremity Social History marital status: unmarried,single Smoking Status: Current some day smoker alcohol intake: current substance use type: does not use Social History marital status: unmarried,single Smoking Status: Current some day smoker alcohol intake: current substance use type: does not use Exam Initial Vital Signs Initial Vital Signs: Vital Signs Temperature 98.4 F 04/07/19 19:03 Pulse Rate 76 04/07/19 19:03 Respiratory Rate 18 04/07/19 19:03 Blood Pressure 181/121 H 04/07/19 19:03 Pulse Oximetry 97 04/07/19 19:03 Const General: cooperative, well developed, well groomed and No acute distress Orientation: alert, awake and oriented x3 HENMT Head: normal to inspection and normocephalic Resp Effort & Inspection: normal respiratory effort Auscultation: clear to auscultation bilaterally Cardio Rate: regular rate Rhythm: regular rhythm GI Inspection: non-distended Palpation: soft and tender (Lower abdomen) Back/Spine/Pelvis Back: No CVA tenderness Skin Lesions: no lesions Rashes: no rashes Neuro General: alert and awake Cognition: normal cognition Speech: speech normal Extrem General: normal to inspection and capillary refill normal Psych Appearance: grossly normal and well kempt Course Orders Ordered: ED Orders 04/07/19 18:52 CT abdomen pelvis w con Stat 04/07/19 18:55 Complete Blood Count AUTO DIFF Stat Comprehensive Metabolic Panel Stat Lipase Stat Discontinued Medications Sodium Chloride (Normal Saline 0.9%) 1,000 mls @ 1,000 mls/hr IV BOLUS ONE Stop: 04/07/19 19:50 Last Infusion: 04/07/19 21:06 Dose: 0 mls/hr Admin: 04/07/19 19:42 Dose: 1,000 mls/hr Morphine Sulfate (Morphine) 4 mg IV NOW ONE Stop: 04/07/19 18:52 Last Admin: 04/07/19 19:42 Dose: 2 mg Ondansetron HCl (Zofran) 4 mg IV NOW ONE Stop: 04/07/19 18:52 Last Admin: 04/07/19 19:42 Dose: 4 mg Vital Signs - 8 hr 04/07/19 19:03 04/07/19 20:30 04/07/19 21:07 Temperature 98.4 F 98.5 F Pulse Rate 76 77 77 Respiratory Rate 18 15 16 Blood Pressure 181/121 H 146/77 H Blood Pressure [Left Arm] 146/77 H Pulse Oximetry 97 97 98 MDM - Abdominal Pain Lab Data Attestation: I reviewed the patient's lab results. Result diagrams: 04/07/19 18:55 04/07/19 18:55 Lab Results 04/07/19 04/07/19 04/07/19 Range/Units 18:55 18:55 18:55 WBC 9.6 (4.5-11.0) X10^3/uL RBC 4.62 (4.5-5.9) X10^6/uL Hgb 16.0 (13.5-17.5) g/dL Hct 45.1 (41-53) % MCV 97.7 (80-100) fL MCH 34.7 H (26-34) PG MCHC 35.5 (30-36) % RDW 12.7 (11.6-14.8) % Plt Count 227 (150-400) X10^3/uL Neut % (Auto) 85.5 H (50-75) % Lymph % (Auto) 8.8 L (25-40) % Kings % (Auto) 4.5 (3-14) % Eos % (Auto) 0.6 L (2-4) % Baso % (Auto) 0.6 (0-2) % Neut # (Auto) 8200 H (7857-6429) /uL Lymph # (Auto) 800 L (7649-6578) /uL Kings # (Auto) 400 (0-900) /uL Eos # (Auto) 100 (0-450) /uL Baso # (Auto) 100 (0-100) /uL Sodium 138 (137-145) mmol/L Potassium 4.2 (3.4-5.1) mmol/L Chloride 103 (98-107) mmol/L Carbon Dioxide 23 (22-32) mmol/L BUN 20 (9-20) mg/dL Creatinine 1.00 (0.66-1.25) mg/dL Estimated GFR > 60.0 (>60) mL/min BUN/Creatinine Ratio 20.0 (6-22) Glucose 154 H (80-110) mg/dL Calcium 9.7 (8.4-10.2) mg/dL Total Bilirubin 0.6 (0.2-1.3) mg/dL AST 22 (17-59) IU/L ALT 14 L (21-72) IU/L Alkaline Phosphatase 85 (38-126) U/L Total Protein 7.6 (6.3-8.2) g/dL Albumin 4.5 (3.5-5.0) g/dL Globulin 3.1 (1.7-4.1) g/dL Albumin/Globulin Ratio 1.5 (1.0-2.8) Lipase 42 (23-300) U/L Point of care testing: Urine Dip Bedside Urine Glucose Negative Bedside Urine Bilirubin - Negative Bedside Urine Ketone - Negative Urine Specific [place] 1.015 Bedside Urine Occult Blood - Negative Bedside Urine pH 8.0 Bedside Urine Protein +/- 15 Bedside Urine Urobilinogen +/- 1mg Bedside Urine Nitrite - Negative Bedside Urine Leukocytes - Negative Esterase Imaging Data CT scan - abdomen: Radiologist's impression: [address] [address] [address] Scan Report Signed Patient: SkylarAnthony martell ALIANR#: [id number] : 2Acct:[id number] Age/Sex: 69 / MDate of Service: 04/07/19 Loc: ED Accession Number: [id number] Procedure: CT abdomen pelvis w con Ordering Provider: Anthony Jones D.O. PROCEDURE: CT ABDOMEN PELVIS W CON INDICATIONS: Left-sided abdominal pain TECHNIQUE: After the administration of intravenous contrast, 5 mm thick sections acquired from the diaphragm to the symphysis. 5 mm coronal and sagittal reformats were acquired. For radiation dose reduction, the following was used: automated exposure control, adjustment of mA and/or kV according to patient size. COMPARISON: [facility], CT, CT ABDOMEN PELVIS W CON, 06/17/2018, 8:34. FINDINGS: Image quality: Excellent. ABDOMEN: Lung bases: Lung bases are clear. Heart size is normal. Solid organs: Diffuse fatty infiltration of the liver. Gallbladder decompressed. Biliary system is non dilated. Pancreas enhances normally. Spleen is normal in size and enhancement. No adrenal nodules. Kidneys demonstrate normal size and enhancement, without hydronephrosis. Simple appearing right renal cyst measuring 3-4 cm. Peritoneum and bowel: Bowel loops demonstrate normal wall thickness and caliber. No free fluid or air. Colonic diverticulosis is seen without evidence of acute complication. The appendix is within normal limits Nodes and vessels: No retroperitoneal or mesenteric adenopathy by size criteria. Aorta and inferior vena cava are normal in size. Miscellaneous: No ventral hernias. PELVIS: Genitourinary: Bladder wall thickness is normal. Miscellaneous: No inguinal hernias or adenopathy. Bones: No suspicious bony lesions. No vertebral body compression fractures. IMPRESSION: Extensive colonic diverticulosis. No definite focally inflamed diverticulitis identified. Hepatic steatosis. Elsewhere, no acute process seen. Dictated by: Lui Blue M.D. on 04/07/2019 at 20:12 Approved by: Lui Blue M.D. on 04/07/2019 at 20:15 MDM Narrative Medical decision making narrative: CT scan of the abdomen shows no acute pathology. He is afebrile. Labs unremarkable. Low suspicion for gallbladder pathology. Low suspicion for UTI. Potentially could have been a kidney stone he is past however he has no history of kidney stones and has had pain similar to this in the past. Will send home with prescription for Zofran. Will have him follow up with his primary provider. He does have a scheduled colonoscopy an EGD for July of this year. He was given return precautions. He expressed understanding and agreement with plan. Discharge Plan Departure Patient Disposition: Home Clinical Impression: Abdominal pain Qualifiers: Abdominal location: unspecified location Qualified Code(s): R10.9 - Unspecified abdominal pain Discharge Date/Time: 04/07/19 21:08 Interventions: ED Discharge Assessment Last Done: 04/07/19 21:07 Instructions: Acute Abdominal Pain Activity Restrictions/Additional Instructions: I recommend you contact your primary provider for a follow-up. Keep all of your scheduled medical appointments. Return to the emergency department for any new or worsening symptoms Prescriptions: New ondansetron 4 mg tablet,disintegrating 4 mg PO Q6H PRN (Reason: nausea and vomiting) Qty: 7 RF: 0 No Action fluoxetine 20 mg capsule 20 mg PO DAILY Qty: 30 RF: 3 tizanidine 2 mg tablet 2 mg PO BEDTIME PRN (Reason: muscle spasticity) Qty: 20 RF: 1 Referrals: Salomón Bynum MD [Primary Care Provider] -
--- NOTE | 2019-04-07 18:52 | DI.CT.S_ITS ---
PROCEDURE: CT ABDOMEN PELVIS W CON INDICATIONS: Left-sided abdominal pain TECHNIQUE: After the administration of intravenous contrast, 5 mm thick sections acquired from the diaphragm to the symphysis. 5 mm coronal and sagittal reformats were acquired. For radiation dose reduction, the following was used: automated exposure control, adjustment of mA and/or kV according to patient size. COMPARISON: [facility], CT, CT ABDOMEN PELVIS W CON, 06/17/2018, 8:34. FINDINGS: Image quality: Excellent. ABDOMEN: Lung bases: Lung bases are clear. Heart size is normal. Solid organs: Diffuse fatty infiltration of the liver. Gallbladder decompressed. Biliary system is non dilated. Pancreas enhances normally. Spleen is normal in size and enhancement. No adrenal nodules. Kidneys demonstrate normal size and enhancement, without hydronephrosis. Simple appearing right renal cyst measuring 3-4 cm. Peritoneum and bowel: Bowel loops demonstrate normal wall thickness and caliber. No free fluid or air. Colonic diverticulosis is seen without evidence of acute complication. The appendix is within normal limits Nodes and vessels: No retroperitoneal or mesenteric adenopathy by size criteria. Aorta and inferior vena cava are normal in size. Miscellaneous: No ventral hernias. PELVIS: Genitourinary: Bladder wall thickness is normal. Miscellaneous: No inguinal hernias or adenopathy. Bones: No suspicious bony lesions. No vertebral body compression fractures. IMPRESSION: Extensive colonic diverticulosis. No definite focally inflamed diverticulitis identified. Hepatic steatosis. Elsewhere, no acute process seen. Dictated by: Lui Blue M.D. on 04/07/2019 at 20:12 Approved by: Lui Blue M.D. on 04/07/2019 at 20:15
[2019-04-07 19:03] VITALS: BP 181/121; PULSE 76; RESP 18; TEMP 36.9; O2SAT 97
[2019-04-07 19:10] LABS: Add Manual Diff / Slide Review NO; Basophils Absolute Auto 100 /uL (0-100); Basophils Percent Auto 0.6 % (0-2); Eosinophils Absolute Auto 100 /uL (0-450); Eosinophils Percent Auto 0.6 % (2-4); Hematocrit 45.1 % (41-53); Lymphocytes Absolute Auto 800 /uL (1100-4500); Lymphocytes Percent Auto 8.8 % (25-40); Mean Corpuscular HGB Conc 35.5 % (30-36); Mean Corpuscular Hemoglobin 34.7 PG (26-34); Mean Corpuscular Volume 97.7 fL (80-100); Monocytes Absolute Auto 400 /uL (0-900); Monocytes Percent Auto 4.5 % (3-14); Neutrophils Absolute Auto 8200 /uL (1500-7000); Neutrophils Percent Auto 85.5 % (50-75); Platelet Count 227 X10^3/uL (150-400); Red Blood Cell Count 4.62 X10^6/uL (4.5-5.9); Red Cell Distribution Width 12.7 % (11.6-14.8); White Blood Cell Count 9.6 X10^3/uL (4.5-11.0)
[2019-04-07 19:24] LABS: Alanine Aminotransferase 14 IU/L (21-72); Albumin 4.5 g/dL (3.5-5.0); Albumin Globulin Ratio 1.5 (1.0-2.8); Alkaline Phosphatase 85 U/L (38-126); Aspartate Aminotransferase 22 IU/L (17-59); Bilirubin Total 0.6 mg/dL (0.2-1.3); Blood Urea Nitrogen 20 mg/dL (9-20); Calcium 9.7 mg/dL (8.4-10.2); Carbon Dioxide 23 mmol/L (22-32); Chloride 103 mmol/L (98-107); Estimated Glomerular Filt Rate > 60.0 mL/min (>60); Globulin 3.1 g/dL (1.7-4.1); Glucose 154 mg/dL (80-110); HEMOLYSIS < 15 (0-50); Potassium 4.2 mmol/L (3.4-5.1); Sodium 138 mmol/L (137-145); Total Protein 7.6 g/dL (6.3-8.2)
[2019-04-07 19:25] LABS: Lipase 42 U/L (23-300)
[2019-04-07] MEDS: MORPHINE 4 MG/ML INJ IV (19:42)
[2019-04-07] MEDS: ONDANSETRON 4 MG/2 ML INJ IV (19:42)
[2019-04-07] MEDS: SODIUM CHLORIDE 0.9% 1,000 ML 1000 ML IV (19:42)
[2019-04-07 20:30] VITALS: BP 146/77; PULSE 77; RESP 15; O2SAT 97
[2019-04-07 21:07] VITALS: BP 146/77; PULSE 77; RESP 16; TEMP 36.9; O2SAT 98
== END 2019-04-07 21:08 | disposition home or self-care (01) ==
PROVIDERS: Emergency Provider Emergency Medicine; Family Provider Family Medicine; PCP Family Medicine
DX: R10.32 Left lower quadrant pain (principal)
CPT/HCPCS: 36591; 74177; 80053; 81003; 83690; 85025; 96361; 96374; 96375; 99283; 99284; J2270; J2405; Q9967

== ENCOUNTER 2019-04-10 14:30 | Outpatient (RCR) | payer MEDICARE, MEDICAID, SELFPAY ==
--- NOTE | 2019-03-10 11:15 | PT.OIE ---
Current Diagnoses Pain in thoracic spine (03/10/19) Past Medical History (Last Updated 03/10/19 @ 16:11 by Nataly Kinsey, PT) Depression (09/11/11) Gastroesophageal reflux disease without esophagitis (07/03/16) Neuropathy (07/03/16) Back pain (Acute) HTN (hypertension) (Acute) Hearing loss (Acute) Diverticulitis (Acute) GERD (gastroesophageal reflux disease) (Acute) Past Surgical History (Last Reviewed 03/10/19 @ 16:10 by Nataly Kinsey, PT) Status post amputation of extremity Provider Visit Care Team Role Provider Type Salomón Bynum MD Family Provider Physician Primary Care Provider Specialty: [facility] Practice Address: [address] [place] [address] Email: [email or web address] FREDO Allen Attending Provider Advanced Wharfinger Chief Specialty: [facility] Address: [address] [place] [address] Email: Physical Therapy Initial Evaluation PT-OP-A Visit Information Start: 03/10/19 15:55 Freq: Status: Active Protocol: Document 03/10/19 11:15 DLM (Rec: 03/10/19 17:17 [facility] [id number]) Out-Patient Physical Therapy Visit Information Visit Information Visit Type Initial Evaluation Visit Start Time 11:15 Visit Stop Time 12:15 Total Visit Minutes 60 Visit Number 1 Number of LOG WASHER Visits 0 Evaluation Information Evaluation Date 03/10/19 PT-OP-B Current Condition Start: 03/10/19 15:55 Freq: Status: Active Protocol: Document 03/10/19 11:15 DLM (Rec: 03/10/19 17:17 DL [id number]) Current Condition History of Current Condition Onset Date 6-7 months ago Current Complaints mid-back pain History of Current Condition He reports about 6-7 months ago he started having increased back pain for no know reason. He is ok during the day but when he tries to get up he can get severe spasms that are so severe he can not get to his feet. He lies back down and rests and then he can usually get up later in the day. The length of the rest is as short as 5- 10 sec or as long as a couple of hours. His pain tends to be worse after work. He mostly sleeps on his sides and prefers a firm mattress. 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 Baseline Function- Recreation/Hobbies Reads, walks dog Baseline Function- Other hx of falls at work Current Functional Impairments (Reported) Functional Limitations- ADL's Independent with modifications to avoid pain Functional Limitations- Mobility/Gait Independent without device, he is careful to avoid pain Functional Limitations- Work/School working 3-4 hours/day, careful to avoid pain Functional Limitations- Recreation/ continues to read and walk dog Hobbies Functional Limitations- Other not sleeping that well, gets up 4-5 times per night Personal Factors Other Personal Factors That May Effect lives alone on [facility], Therapy/Recovery is PT-OP-C Subjective Start: 03/10/19 15:55 Freq: Status: Active Protocol: Document 03/10/19 11:15 DL (Rec: 03/10/19 17:17 [facility] [id number]) Patient Questionnaires Oswestry Low Back Index Oswestry Score 40 Oswestry Impairment 40 to 59% Impaired (Score 40- 59) OP-PT Pain Assessment Location Upper Posterior Back Pain Location Details worst at scapular level, painful entire thoracic area Intensity 9 Scale Used Numeric (1 - 10) Description Aching Sharp Stabbing With Movement Frequency Intermittent Pain Aggravating Factors Changing Position Other Pain Aggravating Factors getting out of bed, he does not know what else makes his pain worse Pain Alleviating Factors Lying Supine Rest Patient Stated Pain Goal 0 Home Pain Medication Use Pain Medications Used No: not using heat or ice either Comments Pain Comments 9/10 is his worst pain, he has 1-2/10 pain today PT-OP-F Manual Assessment Start: 03/10/19 15:55 Freq: Status: Active Protocol: Document 03/10/19 11:15 DLM (Rec: 03/10/19 17:17 DLM [id number]) Manual Assessments Soft Tissue Assessment Soft Tissue Mobility Assessment myofascial tightness bilateral thoracic paraspinal areas, soft tissue thickening noted PT-OP-G Mobility & Gait Start: 03/10/19 15:55 Freq: Status: Active Protocol: Document 03/10/19 11:15 DLM (Rec: 03/10/19 17:17 DLM [id number]) OP Mobility Evaluation Bed Mobility Rolling Independent with pain Supine to and from Sit Independent with pain PT-OP-J Posture/Palpation/Skin Start: 03/10/19 15:55 Freq: Status: Active Protocol: Document 03/10/19 11:15 DLM (Rec: 03/10/19 17:17 DLM [id number]) Posture Evaluation Position Sitting Evaluation View Anterior Head/C-Spine Posture Flexed Forward Head Shoulder Posture (R) Elevated Scapula Posture (L) Winged Arm Posture (L) Neutral (R) Neutral Pelvis Posture Posterior Tilted Comments Posture Comments mild functional thoracic S shaped scoliosis in thoracic spine in sitting/standing that resolves in prone Palpation Assessment Location Lumbar Paraspinal Palpation Location right Palpation Findings Soft Tissue Tightness Spasm Palpation Details L1-3 area, no pain reported Right Upper Trapezius Palpation Location Right upper trap Palpation Findings Soft Tissue Tightness Muscle Guarding Tenderness Trigger Point PT-OP-K Range of Motion Start: 03/10/19 15:55 Freq: Status: Active Protocol: Document 03/10/19 11:15 DLM (Rec: 03/10/19 17:17 DL [id number]) Cervical Spine Range of Motion Cervical Spine Active Percentage Testing Position Sitting Comments no changes in his thoracic pain with active cervical ROM, no pain reported in cervical area Lumbar Spine Range of Motion Lumbar Spine Active Percentage Testing Position Standing Flexion 60 Extension 75 Rotation Left 100 Rotation Right 90 Lateral Flexion Left 75 Lateral Flexion Right 80 ROM Limitations Pain Comments pain with right lateral flexion and right rotation, decreased thoracic movement during trunk extension, lower thoracic rotates right during trunk flexion, decreased thoracic spinal joint movements observed during left thoracic lateral flexion Shoulder Goniometric Range of Motion Shoulder Measured in Degrees Left Active Shoulder ROM WFL No Testing Position Sitting Flexion 110 Right Active Shoulder ROM WFL Yes Shoulder ROM Limitations Shoulder ROM Limitations Soft Tissue Tightness Comments hx of shoulder pain and injury , shoulder pain resolved with physical therapy PT-OP-M Strength Start: 03/10/19 15:55 Freq: Status: Active Protocol: Document 03/10/19 11:15 DLM (Rec: 03/10/19 17:17 DLM [id number]) Trunk Strength Trunk Manual Muscle Testing Testing Position Sitting Flexion 5 Normal Extension 4 Good Rotation Left 4+ Good+ Rotation Right 4+ Good+ Lateral Flexion Left 4+ Good+ Lateral Flexion Right 4+ Good+ Comments tested isometrically in sitting PT-OP-Q Treatments Start: 03/10/19 15:55 Freq: Status: Active Protocol: Document 03/10/19 11:15 DLM (Rec: 03/10/19 17:17 DLM [id number]) Manual Therapy Treatment Soft Tissue Mobilization thoracic paraspinals Body Location posterior thoracic Mobilization Type Myofascial Release Intensity/Depth Superficial Body Position Prone PT-OP-T Assessment and Plan Start: 03/10/19 15:55 Freq: Status: Active Protocol: Document 03/10/19 11:15 DLM (Rec: 03/10/19 17:17 DLM [id number]) Physical Therapy Assessment Rehab Potential Rehabilitation Potential Good Evaluation Complexity Number of Personal Factors/Comorbidities 3 or More Number of Body Systems Impaired 4 or More Clinical Presentation at Evaluation Evolving Impairments Impairments Functional Activities Pain Posture ROM Soft Tissue Mobility Strength Goals Five Impairment Impaired trunk strength Group Home Goal (LTG) Increase trunk strength to 5/5 LTG Duration 8 weeks Four Impairment Impaired Posture Short Term Goal (STG) Patient will demonstrate erect posture STG Duration 4 weeks Group Home Goal (LTG) Patient will be able to maintain erect posture in sitting and standing LTG Duration 8 weeks Three Impairment Pain getting out of bed Short Term Goal (STG) Decrease episodes of severe pain getting out of bed will decrease to once a week STG Duration 4 weeks Medical Insurance Coding Specialist Goal (LTG) Resolve episodes of severe pain when getting out of bed. LTG Duration 8 weeks Two Impairment Trunk ROM limitations Short Term Goal (STG) Increase his active Trunk ROM to WNL without increased pain STG Duration 4 weeks One Impairment Pain Short Term Goal (STG) Decrease his worst pain to 6/ 10 STG Duration 4 weeks Group Home Goal (LTG) Decrease his worst pain to 3/ 10 LTG Duration 8 weeks Assessment Summary Assessment Clinically he presents with symptoms consistent with thoracic strain/sprain with mechanical dysfunction and soft tissue tightness. Unable to trigger his severe spasms/ pain during this visit. Unclear what his triggers are for his more severe pain events. I suspect his symptoms are a combination of repetitive strain and old injuries from falls. No radicular symptoms identified on this exam. He is a good candidate for physical therapy to address this thoracic pain . Physical Therapy Plan Frequency and Duration Frequency of Treatment 2x/Week Duration of Treatment 8 weeks Plan of Care Start Date 03/10/19 Plan of Care End Date 05/05/19 Therapeutic Interventions Therapeutic Interventions Home Exercise Program Joint Mobilizations Manual Therapy Patient/Caregiver Education Self-Care/Home Management Soft Tissue Mobilization Taping Therapeutic Activities Therapeutic Exercises Modalities Cold Pack/Ice Massage Electric Stimulation Hot Packs Ultrasound Next Visit Focus/Plan Next Note Type Treatment Note Next Visit Plan Initiate exercises for thoracic mobility and strengthening
--- NOTE | 2019-03-10 11:15 | PT.OPPOC ---
Current Diagnoses Pain in thoracic spine (03/10/19) Provider Visit Care Team Role Provider Type Salomón Bynum MD Family Provider Physician Primary Care Provider Specialty: [facility] Address: [address] [place] [address], [id number] Email: [email or web address] FREDO Allen Attending Provider Advanced Educational Guidance Counselor Specialty: [facility] Address: [address] [place] [address], [id number] Email: Plan Of Care PT-OP-T Assessment and Plan Start: 03/10/19 15:55 Freq: Status: Active Protocol: Document 03/10/19 11:15 DLM (Rec: 03/10/19 17:17 DLM [id number]) Physical Therapy Assessment Rehab Potential Rehabilitation Potential Good Evaluation Complexity Number of Personal Factors/Comorbidities 3 or More Number of Body Systems Impaired 4 or More Clinical Presentation at Evaluation Evolving Impairments Impairments Functional Activities Pain Posture ROM Soft Tissue Mobility Strength Goals Five Impairment Impaired trunk strength Care Home Goal (LTG) Increase trunk strength to 5/5 LTG Duration 8 weeks Four Impairment Impaired Posture Short Term Goal (STG) Patient will demonstrate erect posture STG Duration 4 weeks Vasc Tech Goal (LTG) Patient will be able to maintain erect posture in sitting and standing LTG Duration 8 weeks Three Impairment Pain getting out of bed Short Term Goal (STG) Decrease episodes of severe pain getting out of bed will decrease to once a week STG Duration 4 weeks Vasc Tech Goal (LTG) Resolve episodes of severe pain when getting out of bed. LTG Duration 8 weeks Two Impairment Trunk ROM limitations Short Term Goal (STG) Increase his active Trunk ROM to WNL without increased pain STG Duration 4 weeks One Impairment Pain Short Term Goal (STG) Decrease his worst pain to 6/ 10 STG Duration 4 weeks Care Home Goal (LTG) Decrease his worst pain to 3/ 10 LTG Duration 8 weeks Assessment Summary Assessment Clinically he presents with symptoms consistent with thoracic strain/sprain with mechanical dysfunction and soft tissue tightness. Unable to trigger his severe spasms/ pain during this visit. Unclear what his triggers are for his more severe pain events. I suspect his symptoms are a combination of repetitive strain and old injuries from falls. No radicular symptoms identified on this exam. He is a good candidate for physical therapy to address this thoracic pain . Physical Therapy Plan Frequency and Duration Frequency of Treatment 2x/Week Duration of Treatment 8 weeks Plan of Care Start Date 03/10/19 Plan of Care End Date 05/05/19 Therapeutic Interventions Therapeutic Interventions Home Exercise Program Joint Mobilizations Manual Therapy Patient/Caregiver Education Self-Care/Home Management Soft Tissue Mobilization Taping Therapeutic Activities Therapeutic Exercises Modalities Cold Pack/Ice Massage Electric Stimulation Hot Packs Ultrasound Next Visit Focus/Plan Next Note Type Treatment Note Next Visit Plan Initiate exercises for thoracic mobility and strengthening Plan of Care Dates Plan of Care Start Date 03/10/19 Plan of Care End Date 05/05/19 Please Sign and Return: I have reviewed this Plan of Care and certify that the skilled therapy services above are required to meet the patient?s needs. Physician Signature Date
--- NOTE | 2019-03-13 11:45 | PT.OTN ---
Current Diagnoses Pain in thoracic spine (03/13/19) Physical Therapy Treatment Note PT-OP-A Visit Information Start: 03/10/19 15:55 Freq: Status: Active Protocol: Document 03/13/19 11:45 DLM (Rec: 03/13/19 17:20 DLM [id number]) Out-Patient Physical Therapy Visit Information Visit Information Visit Type Treatment Note Visit Start Time 11:45 Visit Stop Time 12:45 Total Visit Minutes 60 Visit Number 2 Number of DIRECTOR CLINICAL OPERATIONS Visits 0 Evaluation Information Evaluation Date 03/10/19 PT-OP-B Current Condition Start: 03/10/19 15:55 Freq: Status: Active Protocol: Document 03/10/19 11:15 DLM (Rec: 03/10/19 17:17 DLM [id number]) Current Condition History of Current Condition Onset Date 6-7 months ago Current Complaints mid-back pain History of Current Condition He reports about 6-7 months ago he started having increased back pain for no know reason. He is ok during the day but when he tries to get up he can get severe spasms that are so severe he can not get to his feet. He lies back down and rests and then he can usually get up later in the day. The length of the rest is as short as 5- 10 sec or as long as a couple of hours. His pain tends to be worse after work. He mostly sleeps on his sides and prefers a firm mattress. 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 Baseline Function- Recreation/Hobbies Reads, walks dog Baseline Function- Other hx of falls at work Current Functional Impairments (Reported) Functional Limitations- ADL's Independent with modifications to avoid pain Functional Limitations- Mobility/Gait Independent without device, he is careful to avoid pain Functional Limitations- Work/School working 3-4 hours/day, careful to avoid pain Functional Limitations- Recreation/ continues to read and walk dog Hobbies Functional Limitations- Other not sleeping that well, gets up 4-5 times per night Personal Factors Other Personal Factors That May Effect lives alone on [address], Therapy/Recovery is PT-OP-C Subjective Start: 03/10/19 15:55 Freq: Status: Active Protocol: Document 03/13/19 11:45 DLM (Rec: 03/13/19 17:20 DLM [id number]) OP-PT Subjective Patient Comments Patient Comments His pain has been a little less severe and fewer nights since last visit. PT-OP-F Manual Assessment Start: 03/10/19 15:55 Freq: Status: Active Protocol: Document 03/10/19 11:15 DLM (Rec: 03/10/19 17:17 DLM [id number]) Manual Assessments Soft Tissue Assessment Soft Tissue Mobility Assessment myofascial tightness bilateral thoracic paraspinal areas, soft tissue thickening noted PT-OP-G Mobility & Gait Start: 03/10/19 15:55 Freq: Status: Active Protocol: Document 03/10/19 11:15 DLM (Rec: 03/10/19 17:17 DLM [id number]) OP Mobility Evaluation Bed Mobility Rolling Independent with pain Supine to and from Sit Independent with pain PT-OP-J Posture/Palpation/Skin Start: 03/10/19 15:55 Freq: Status: Active Protocol: Document 03/10/19 11:15 DLM (Rec: 03/10/19 17:17 DLM [id number]) Posture Evaluation Position Sitting Evaluation View Anterior Head/C-Spine Posture Flexed Forward Head Shoulder Posture (R) Elevated Scapula Posture (L) Winged Arm Posture (L) Neutral (R) Neutral Pelvis Posture Posterior Tilted Comments Posture Comments mild functional thoracic S shaped scoliosis in thoracic spine in sitting/standing that resolves in prone Palpation Assessment Location Lumbar Paraspinal Palpation Location right Palpation Findings Soft Tissue Tightness Spasm Palpation Details L1-3 area, no pain reported Right Upper Trapezius Palpation Location Right upper trap Palpation Findings Soft Tissue Tightness Muscle Guarding Tenderness Trigger Point PT-OP-K Range of Motion Start: 03/10/19 15:55 Freq: Status: Active Protocol: Document 03/10/19 11:15 DLM (Rec: 03/10/19 17:17 DLM [id number]) Cervical Spine Range of Motion Cervical Spine Active Percentage Testing Position Sitting Comments no changes in his thoracic pain with active cervical ROM, no pain reported in cervical area Lumbar Spine Range of Motion Lumbar Spine Active Percentage Testing Position Standing Flexion 60 Extension 75 Rotation Left 100 Rotation Right 90 Lateral Flexion Left 75 Lateral Flexion Right 80 ROM Limitations Pain Comments pain with right lateral flexion and right rotation, decreased thoracic movement during trunk extension, lower thoracic rotates right during trunk flexion, decreased thoracic spinal joint movements observed during left thoracic lateral flexion Shoulder Goniometric Range of Motion Shoulder Measured in Degrees Left Active Shoulder ROM WFL No Testing Position Sitting Flexion 110 Right Active Shoulder ROM WFL Yes Shoulder ROM Limitations Shoulder ROM Limitations Soft Tissue Tightness Comments hx of shoulder pain and injury , shoulder pain resolved with physical therapy PT-OP-M Strength Start: 03/10/19 15:55 Freq: Status: Active Protocol: Document 03/10/19 11:15 DLM (Rec: 03/10/19 17:17 DLM [id number]) Trunk Strength Trunk Manual Muscle Testing Testing Position Sitting Flexion 5 Normal Extension 4 Good Rotation Left 4+ Good+ Rotation Right 4+ Good+ Lateral Flexion Left 4+ Good+ Lateral Flexion Right 4+ Good+ Comments tested isometrically in sitting PT-OP-Q Treatments Start: 03/10/19 15:55 Freq: Status: Active Protocol: Document 03/13/19 11:45 DLM (Rec: 03/13/19 17:20 DLM [id number]) Cardio Equipment Recumbent Stepper (Sci-Fit) Duration (Minutes) 6 Resistance level 2 Seat Position 12 Other UE and LE Therapeutic Exercises Supine Exercises 2 Supine Exercise Name Hooklying lower trunk rotation stretch Side bilateral Reps/Minutes 3 reps 1 Supine Exercise Name Foam roll postural stretch Equipment Used needs pillow under head, can not lie flat Reps/Minutes 5 min Comments UE's at side and over-head stretch Other Exercises 2 Other Exercise Name Quadruped prayer stretch Reps/Minutes x 3 reps 1 Other Exercise Name Quadruped cat/camel Reps/Minutes x 5 reps Manual Therapy Treatment Soft Tissue Mobilization thoracic paraspinals Body Location posterior thoracic Mobilization Type Myofascial Release Rolling Sustained Pressure Intensity/Depth Moderate Body Position Prone Comments improved myofascial mobility, point tenderness left side T10 area Joint Mobilizations 1 Joint thoracic spine Direction P-A glides Grade II Body Position Prone Reps/Duration 2 sets Taping 1 Body Location Paraspinals Treatment Focus soft tissue mobility Type of Tape Kinesio Tape Skin Inspection intact PT-OP-R Modalities Start: 03/10/19 15:55 Freq: Status: Active Protocol: Document 03/13/19 11:45 DLM (Rec: 03/13/19 17:20 DLM [id number]) Hot Pack/Cold Pack Treatment Hot Pack Location back Patient Position Prone Treatment Duration (minutes) 15 PT-OP-T Assessment and Plan Start: 03/10/19 15:55 Freq: Status: Active Protocol: Document 03/13/19 11:45 DLM (Rec: 03/13/19 17:20 DLM [id number]) Physical Therapy Assessment Goals Five Impairment Impaired trunk strength Mcfp Goal (LTG) Increase trunk strength to 5/5 LTG Duration 8 weeks Four Impairment Impaired Posture Short Term Goal (STG) Patient will demonstrate erect posture STG Duration 4 weeks Wet Process Head Miller Goal (LTG) Patient will be able to maintain erect posture in sitting and standing LTG Duration 8 weeks Three Impairment Pain getting out of bed Short Term Goal (STG) Decrease episodes of severe pain getting out of bed will decrease to once a week STG Duration 4 weeks Mcfp Goal (LTG) Resolve episodes of severe pain when getting out of bed. LTG Duration 8 weeks Two Impairment Trunk ROM limitations Short Term Goal (STG) Increase his active Trunk ROM to WNL without increased pain STG Duration 4 weeks One Impairment Pain Short Term Goal (STG) Decrease his worst pain to 6/ 10 STG Duration 4 weeks Wet Process Head Miller Goal (LTG) Decrease his worst pain to 3/ 10 LTG Duration 8 weeks Assessment Summary Assessment Pt tolerated his treatment session well over-all. Noted some improvement in his myofascial mobility. Pt unable to lie head back to neutral supine without pillow that affects his positioning on the foam roll. Will assess his response to the exercises next visit then advance them as tolerated. Physical Therapy Plan Frequency and Duration Frequency of Treatment 2x/Week Duration of Treatment 8 weeks Plan of Care Start Date 03/10/19 Plan of Care End Date 05/05/19 Next Visit Focus/Plan Next Note Type Treatment Note Next Visit Plan advance exercises as tolerated , trial Estim
--- NOTE | 2019-03-17 11:15 | PT.OTN ---
Current Diagnoses Pain in thoracic spine (03/17/19) Physical Therapy Treatment Note PT-OP-A Visit Information Start: 03/10/19 15:55 Freq: Status: Active Protocol: Document 03/17/19 11:15 DLM (Rec: 03/17/19 12:25 DLM [id number]) Out-Patient Physical Therapy Visit Information Visit Information Visit Type Treatment Note Visit Start Time 11:25 Visit Stop Time 12:30 Total Visit Minutes 65 Visit Number 3 Number of VETERINARY VIRUS SERUM INSPECTOR Visits 0 Evaluation Information Evaluation Date 03/10/19 PT-OP-B Current Condition Start: 03/10/19 15:55 Freq: Status: Active Protocol: Document 03/10/19 11:15 DLM (Rec: 03/10/19 17:17 DLM [id number]) Current Condition History of Current Condition Onset Date 6-7 months ago Current Complaints mid-back pain History of Current Condition He reports about 6-7 months ago he started having increased back pain for no know reason. He is ok during the day but when he tries to get up he can get severe spasms that are so severe he can not get to his feet. He lies back down and rests and then he can usually get up later in the day. The length of the rest is as short as 5- 10 sec or as long as a couple of hours. His pain tends to be worse after work. He mostly sleeps on his sides and prefers a firm mattress. 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 Baseline Function- Recreation/Hobbies Reads, walks dog Baseline Function- Other hx of falls at work Current Functional Impairments (Reported) Functional Limitations- ADL's Independent with modifications to avoid pain Functional Limitations- Mobility/Gait Independent without device, he is careful to avoid pain Functional Limitations- Work/School working 3-4 hours/day, careful to avoid pain Functional Limitations- Recreation/ continues to read and walk dog Hobbies Functional Limitations- Other not sleeping that well, gets up 4-5 times per night Personal Factors Other Personal Factors That May Effect lives alone on [facility], Therapy/Recovery is PT-OP-C Subjective Start: 03/10/19 15:55 Freq: Status: Active Protocol: Document 03/17/19 11:15 DLM (Rec: 03/17/19 12:25 DLM [id number]) OP-PT Subjective Patient Comments Patient Comments He has less pain since last visit. No skin irritation with the kinesiotape. PT-OP-F Manual Assessment Start: 03/10/19 15:55 Freq: Status: Active Protocol: Document 03/10/19 11:15 DLM (Rec: 03/10/19 17:17 DLM [id number]) Manual Assessments Soft Tissue Assessment Soft Tissue Mobility Assessment myofascial tightness bilateral thoracic paraspinal areas, soft tissue thickening noted PT-OP-G Mobility & Gait Start: 03/10/19 15:55 Freq: Status: Active Protocol: Document 03/10/19 11:15 DLM (Rec: 03/10/19 17:17 DLM [id number]) OP Mobility Evaluation Bed Mobility Rolling Independent with pain Supine to and from Sit Independent with pain PT-OP-J Posture/Palpation/Skin Start: 03/10/19 15:55 Freq: Status: Active Protocol: Document 03/10/19 11:15 DLM (Rec: 03/10/19 17:17 DLM [id number]) Posture Evaluation Position Sitting Evaluation View Anterior Head/C-Spine Posture Flexed Forward Head Shoulder Posture (R) Elevated Scapula Posture (L) Winged Arm Posture (L) Neutral (R) Neutral Pelvis Posture Posterior Tilted Comments Posture Comments mild functional thoracic S shaped scoliosis in thoracic spine in sitting/standing that resolves in prone Palpation Assessment Location Lumbar Paraspinal Palpation Location right Palpation Findings Soft Tissue Tightness Spasm Palpation Details L1-3 area, no pain reported Right Upper Trapezius Palpation Location Right upper trap Palpation Findings Soft Tissue Tightness Muscle Guarding Tenderness Trigger Point PT-OP-K Range of Motion Start: 03/10/19 15:55 Freq: Status: Active Protocol: Document 03/10/19 11:15 DLM (Rec: 03/10/19 17:17 DLM [id number]) Cervical Spine Range of Motion Cervical Spine Active Percentage Testing Position Sitting Comments no changes in his thoracic pain with active cervical ROM, no pain reported in cervical area Lumbar Spine Range of Motion Lumbar Spine Active Percentage Testing Position Standing Flexion 60 Extension 75 Rotation Left 100 Rotation Right 90 Lateral Flexion Left 75 Lateral Flexion Right 80 ROM Limitations Pain Comments pain with right lateral flexion and right rotation, decreased thoracic movement during trunk extension, lower thoracic rotates right during trunk flexion, decreased thoracic spinal joint movements observed during left thoracic lateral flexion Shoulder Goniometric Range of Motion Shoulder Measured in Degrees Left Active Shoulder ROM WFL No Testing Position Sitting Flexion 110 Right Active Shoulder ROM WFL Yes Shoulder ROM Limitations Shoulder ROM Limitations Soft Tissue Tightness Comments hx of shoulder pain and injury , shoulder pain resolved with physical therapy PT-OP-M Strength Start: 03/10/19 15:55 Freq: Status: Active Protocol: Document 03/10/19 11:15 DLM (Rec: 03/10/19 17:17 DLM [id number]) Trunk Strength Trunk Manual Muscle Testing Testing Position Sitting Flexion 5 Normal Extension 4 Good Rotation Left 4+ Good+ Rotation Right 4+ Good+ Lateral Flexion Left 4+ Good+ Lateral Flexion Right 4+ Good+ Comments tested isometrically in sitting PT-OP-Q Treatments Start: 03/10/19 15:55 Freq: Status: Active Protocol: Document 03/17/19 11:15 DLM (Rec: 03/17/19 12:25 DLM [id number]) Cardio Equipment Recumbent Stepper (Sci-Fit) Duration (Minutes) 6 Resistance level 2 Seat Position 13 Other UE and LE Therapeutic Exercises Supine Exercises 2 Supine Exercise Name Hooklying lower trunk rotation stretch Side bilateral Reps/Minutes 3 reps 1 Supine Exercise Name Foam roll postural stretch Resistance caution for shoulder pain Equipment Used needs pillow under head, can not lie flat Reps/Minutes 5 min Comments UE's at side and over-head stretch Other Exercises 2 Other Exercise Name Quadruped prayer stretch Reps/Minutes x 3 reps 1 Other Exercise Name Quadruped cat/camel Reps/Minutes x 5 reps Manual Therapy Treatment Soft Tissue Mobilization thoracic paraspinals Body Location posterior thoracic Mobilization Type Cross-Friction Rolling Strumming Sustained Pressure Intensity/Depth Moderate Body Position Prone Comments with deep prep massage cream PT-OP-R Modalities Start: 03/10/19 15:55 Freq: Status: Active Protocol: Document 03/17/19 11:15 DLM (Rec: 03/17/19 12:25 DLM [id number]) Hot Pack/Cold Pack Treatment Hot Pack Location back Patient Position Prone Treatment Duration (minutes) 15 Comments at end of treatment session PT-OP-T Assessment and Plan Start: 03/10/19 15:55 Freq: Status: Active Protocol: Document 03/17/19 11:15 DLM (Rec: 03/17/19 12:25 DL [id number]) Physical Therapy Assessment Goals Five Impairment Impaired trunk strength Care Home Goal (LTG) Increase trunk strength to 5/5 LTG Duration 8 weeks Four Impairment Impaired Posture Short Term Goal (STG) Patient will demonstrate erect posture STG Duration 4 weeks Care Home Goal (LTG) Patient will be able to maintain erect posture in sitting and standing LTG Duration 8 weeks Three Impairment Pain getting out of bed Short Term Goal (STG) Decrease episodes of severe pain getting out of bed will decrease to once a week STG Duration 4 weeks Filer Repairer Goal (LTG) Resolve episodes of severe pain when getting out of bed. LTG Duration 8 weeks Two Impairment Trunk ROM limitations Short Term Goal (STG) Increase his active Trunk ROM to WNL without increased pain STG Duration 4 weeks One Impairment Pain Short Term Goal (STG) Decrease his worst pain to 6/ 10 STG Duration 4 weeks Filer Repairer Goal (LTG) Decrease his worst pain to 3/ 10 LTG Duration 8 weeks Progress Towards Goals Progress Towards Goals Progressing Toward Goals Assessment Summary Assessment He reports improved pain with therapy. He tolerated the kinesiotape well without skin irritation. He had some pain with his exercises today ( exception is the Sci-Fit). Soft tissue mobility improved with treatment today. Held kinesiotape this visit to rest skin but will plan to do it again next visit. Held off on estim trial since his pain is improving without it for now. Physical Therapy Plan Frequency and Duration Frequency of Treatment 2x/Week Duration of Treatment 8 weeks Plan of Care Start Date 03/10/19 Plan of Care End Date 05/05/19 Therapeutic Interventions Therapeutic Interventions Home Exercise Program Joint Mobilizations Manual Therapy Patient/Caregiver Education Self-Care/Home Management Soft Tissue Mobilization Taping Therapeutic Activities Therapeutic Exercises Modalities Cold Pack/Ice Massage Electric Stimulation Hot Packs Ultrasound Next Visit Focus/Plan Next Note Type Treatment Note Next Visit Plan advance exercises slowly due to pain, kinesiotape again next visit.
--- NOTE | 2019-03-23 13:00 | PT.OTN ---
Current Diagnoses Pain in thoracic spine (03/23/19) Physical Therapy Treatment Note PT-OP-A Visit Information Start: 03/10/19 15:55 Freq: Status: Active Protocol: Document 03/23/19 13:00 DLM (Rec: 03/23/19 13:46 DLM [id number]) Out-Patient Physical Therapy Visit Information Visit Information Visit Type Treatment Note Visit Start Time 13:00 Visit Number 4 Number of JUICE MIXER Visits 0 Evaluation Information Evaluation Date 03/10/19 PT-OP-B Current Condition Start: 03/10/19 15:55 Freq: Status: Active Protocol: Document 03/10/19 11:15 DLM (Rec: 03/10/19 17:17 DLM [id number]) Current Condition History of Current Condition Onset Date 6-7 months ago Current Complaints mid-back pain History of Current Condition He reports about 6-7 months ago he started having increased back pain for no know reason. He is ok during the day but when he tries to get up he can get severe spasms that are so severe he can not get to his feet. He lies back down and rests and then he can usually get up later in the day. The length of the rest is as short as 5- 10 sec or as long as a couple of hours. His pain tends to be worse after work. He mostly sleeps on his sides and prefers a firm mattress. 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 Baseline Function- Recreation/Hobbies Reads, walks dog Baseline Function- Other hx of falls at work Current Functional Impairments (Reported) Functional Limitations- ADL's Independent with modifications to avoid pain Functional Limitations- Mobility/Gait Independent without device, he is careful to avoid pain Functional Limitations- Work/School working 3-4 hours/day, careful to avoid pain Functional Limitations- Recreation/ continues to read and walk dog Hobbies Functional Limitations- Other not sleeping that well, gets up 4-5 times per night Personal Factors Other Personal Factors That May Effect lives alone on [facility], Therapy/Recovery is PT-OP-C Subjective Start: 03/10/19 15:55 Freq: Status: Active Protocol: Document 03/23/19 13:00 DLM (Rec: 03/23/19 13:46 DLM [id number]) OP-PT Subjective Patient Comments Patient Comments Last night was a bad night. His back caught every time he tried to get out of bed. He reports also feeling stiff and sore everywhere. He questions if it is due to the weather. His back is better since getting up and it is only a little sore now. He is more sore on right than left. PT-OP-F Manual Assessment Start: 03/10/19 15:55 Freq: Status: Active Protocol: Document 03/10/19 11:15 DLM (Rec: 03/10/19 17:17 DLM [id number]) Manual Assessments Soft Tissue Assessment Soft Tissue Mobility Assessment myofascial tightness bilateral thoracic paraspinal areas, soft tissue thickening noted PT-OP-G Mobility & Gait Start: 03/10/19 15:55 Freq: Status: Active Protocol: Document 03/10/19 11:15 DLM (Rec: 03/10/19 17:17 DLM [id number]) OP Mobility Evaluation Bed Mobility Rolling Independent with pain Supine to and from Sit Independent with pain PT-OP-J Posture/Palpation/Skin Start: 03/10/19 15:55 Freq: Status: Active Protocol: Document 03/10/19 11:15 DLM (Rec: 03/10/19 17:17 DLM [id number]) Posture Evaluation Position Sitting Evaluation View Anterior Head/C-Spine Posture Flexed Forward Head Shoulder Posture (R) Elevated Scapula Posture (L) Winged Arm Posture (L) Neutral (R) Neutral Pelvis Posture Posterior Tilted Comments Posture Comments mild functional thoracic S shaped scoliosis in thoracic spine in sitting/standing that resolves in prone Palpation Assessment Location Lumbar Paraspinal Palpation Location right Palpation Findings Soft Tissue Tightness Spasm Palpation Details L1-3 area, no pain reported Right Upper Trapezius Palpation Location Right upper trap Palpation Findings Soft Tissue Tightness Muscle Guarding Tenderness Trigger Point PT-OP-K Range of Motion Start: 03/10/19 15:55 Freq: Status: Active Protocol: Document 03/10/19 11:15 DLM (Rec: 03/10/19 17:17 DLM [id number]) Cervical Spine Range of Motion Cervical Spine Active Percentage Testing Position Sitting Comments no changes in his thoracic pain with active cervical ROM, no pain reported in cervical area Lumbar Spine Range of Motion Lumbar Spine Active Percentage Testing Position Standing Flexion 60 Extension 75 Rotation Left 100 Rotation Right 90 Lateral Flexion Left 75 Lateral Flexion Right 80 ROM Limitations Pain Comments pain with right lateral flexion and right rotation, decreased thoracic movement during trunk extension, lower thoracic rotates right during trunk flexion, decreased thoracic spinal joint movements observed during left thoracic lateral flexion Shoulder Goniometric Range of Motion Shoulder Measured in Degrees Left Active Shoulder ROM WFL No Testing Position Sitting Flexion 110 Right Active Shoulder ROM WFL Yes Shoulder ROM Limitations Shoulder ROM Limitations Soft Tissue Tightness Comments hx of shoulder pain and injury , shoulder pain resolved with physical therapy PT-OP-M Strength Start: 03/10/19 15:55 Freq: Status: Active Protocol: Document 03/10/19 11:15 DLM (Rec: 03/10/19 17:17 DL [id number]) Trunk Strength Trunk Manual Muscle Testing Testing Position Sitting Flexion 5 Normal Extension 4 Good Rotation Left 4+ Good+ Rotation Right 4+ Good+ Lateral Flexion Left 4+ Good+ Lateral Flexion Right 4+ Good+ Comments tested isometrically in sitting PT-OP-Q Treatments Start: 03/10/19 15:55 Freq: Status: Active Protocol: Document 03/23/19 13:00 DLM (Rec: 03/23/19 13:50 DLM [id number]) Cardio Equipment Recumbent Stepper (Sci-Fit) Duration (Minutes) 6 Resistance level 2 Seat Position 13 Other UE and LE Therapeutic Exercises Supine Exercises 2 Supine Exercise Name Hooklying lower trunk rotation stretch Side bilateral Reps/Minutes 3 reps 1 Supine Exercise Name Foam roll postural stretch Resistance caution for shoulder pain Equipment Used needs pillow under head, can not lie flat Reps/Minutes 5 min Comments UE's at side and over-head stretch Prone Exercises 1 Prone Exercise Name scap retraction with shoulder extension Side bilateral Resistance active Equipment Used green therapy ball Reps/Minutes 10 reps Comments try smaller ball next visit Other Exercises 2 Other Exercise Name Quadruped prayer stretch Reps/Minutes x 3 reps 1 Other Exercise Name Quadruped cat/camel Reps/Minutes x 5 reps Manual Therapy Treatment Taping 1 Body Location Paraspinals Treatment Focus soft tissue mobility Type of Tape Kinesio Tape Skin Inspection intact PT-OP-R Modalities Start: 03/10/19 15:55 Freq: Status: Active Protocol: Document 03/23/19 13:00 DLM (Rec: 03/23/19 13:50 DLM [id number]) Electric Stimulation Electric Stimulation Interferential Current (IFC) Body Location thoracic area Duration (Minutes) 15 Target/Sweep Target Patient Position Prone Combined With Heat/Cold Hot Pack PT-OP-T Assessment and Plan Start: 03/10/19 15:55 Freq: Status: Active Protocol: Document 03/23/19 13:00 DLM (Rec: 03/23/19 14:59 DLM [id number]) Physical Therapy Assessment Goals Five Impairment Impaired trunk strength Detention Goal (LTG) Increase trunk strength to 5/5 LTG Duration 8 weeks Four Impairment Impaired Posture Short Term Goal (STG) Patient will demonstrate erect posture STG Duration 4 weeks Hydraulic Press Tender Goal (LTG) Patient will be able to maintain erect posture in sitting and standing LTG Duration 8 weeks Three Impairment Pain getting out of bed Short Term Goal (STG) Decrease episodes of severe pain getting out of bed will decrease to once a week STG Duration 4 weeks Hydraulic Press Tender Goal (LTG) Resolve episodes of severe pain when getting out of bed. LTG Duration 8 weeks Two Impairment Trunk ROM limitations Short Term Goal (STG) Increase his active Trunk ROM to WNL without increased pain STG Duration 4 weeks One Impairment Pain Short Term Goal (STG) Decrease his worst pain to 6/ 10 STG Duration 4 weeks Detention Goal (LTG) Decrease his worst pain to 3/ 10 LTG Duration 8 weeks Assessment Summary Assessment He reports feeling better at the end of this visit. He tolerates his exercises well. Have to limit his time in quadruped due to wrist issues. He continues to have catching pain with getting out of bed but unclear why it would have been worse last night. He thinks he has less catching when wearing the tape so will assess next time. Physical Therapy Plan Frequency and Duration Frequency of Treatment 2x/Week Duration of Treatment 8 weeks Plan of Care Start Date 03/10/19 Plan of Care End Date 05/05/19 Therapeutic Interventions Therapeutic Interventions Home Exercise Program Joint Mobilizations Manual Therapy Patient/Caregiver Education Self-Care/Home Management Soft Tissue Mobilization Taping Therapeutic Activities Therapeutic Exercises Modalities Cold Pack/Ice Massage Electric Stimulation Hot Packs Ultrasound Next Visit Focus/Plan Next Note Type Treatment Note Next Visit Plan continue to slowly advance exercises, assess response to Estim
--- NOTE | 2019-03-26 11:15 | PT.OTN ---
Current Diagnoses Pain in thoracic spine (03/26/19) Physical Therapy Treatment Note PT-OP-A Visit Information Start: 03/10/19 15:55 Freq: Status: Active Protocol: Document 03/26/19 11:15 DLM (Rec: 03/26/19 19:35 DL [id number]) Out-Patient Physical Therapy Visit Information Visit Information Visit Type Treatment Note Visit Start Time 11:15 Visit Stop Time 12:10 Visit Number 5 Number of FINISHING RANGE OPERATOR Visits 0 Evaluation Information Evaluation Date 03/10/19 PT-OP-B Current Condition Start: 03/10/19 15:55 Freq: Status: Active Protocol: Document 03/10/19 11:15 DLM (Rec: 03/10/19 17:17 DLM [id number]) Current Condition History of Current Condition Onset Date 6-7 months ago Current Complaints mid-back pain History of Current Condition He reports about 6-7 months ago he started having increased back pain for no know reason. He is ok during the day but when he tries to get up he can get severe spasms that are so severe he can not get to his feet. He lies back down and rests and then he can usually get up later in the day. The length of the rest is as short as 5- 10 sec or as long as a couple of hours. His pain tends to be worse after work. He mostly sleeps on his sides and prefers a firm mattress. 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 Baseline Function- Recreation/Hobbies Reads, walks dog Baseline Function- Other hx of falls at work Current Functional Impairments (Reported) Functional Limitations- ADL's Independent with modifications to avoid pain Functional Limitations- Mobility/Gait Independent without device, he is careful to avoid pain Functional Limitations- Work/School working 3-4 hours/day, careful to avoid pain Functional Limitations- Recreation/ continues to read and walk dog Hobbies Functional Limitations- Other not sleeping that well, gets up 4-5 times per night Personal Factors Other Personal Factors That May Effect lives alone on [facility], Therapy/Recovery is PT-OP-C Subjective Start: 03/10/19 15:55 Freq: Status: Active Protocol: Document 03/26/19 11:15 DLM (Rec: 03/26/19 19:35 DLM [id number]) OP-PT Subjective Patient Comments Patient Comments He feels better today and was better last night. He is not sure if the taping helps or not. He is not sure if the estim helped. Patient Reported Progress Improving PT-OP-F Manual Assessment Start: 03/10/19 15:55 Freq: Status: Active Protocol: Document 03/10/19 11:15 DLM (Rec: 03/10/19 17:17 DLM [id number]) Manual Assessments Soft Tissue Assessment Soft Tissue Mobility Assessment myofascial tightness bilateral thoracic paraspinal areas, soft tissue thickening noted PT-OP-G Mobility & Gait Start: 03/10/19 15:55 Freq: Status: Active Protocol: Document 03/10/19 11:15 DLM (Rec: 03/10/19 17:17 DLM [id number]) OP Mobility Evaluation Bed Mobility Rolling Independent with pain Supine to and from Sit Independent with pain PT-OP-J Posture/Palpation/Skin Start: 03/10/19 15:55 Freq: Status: Active Protocol: Document 03/10/19 11:15 DLM (Rec: 03/10/19 17:17 DLM [id number]) Posture Evaluation Position Sitting Evaluation View Anterior Head/C-Spine Posture Flexed Forward Head Shoulder Posture (R) Elevated Scapula Posture (L) Winged Arm Posture (L) Neutral (R) Neutral Pelvis Posture Posterior Tilted Comments Posture Comments mild functional thoracic S shaped scoliosis in thoracic spine in sitting/standing that resolves in prone Palpation Assessment Location Lumbar Paraspinal Palpation Location right Palpation Findings Soft Tissue Tightness Spasm Palpation Details L1-3 area, no pain reported Right Upper Trapezius Palpation Location Right upper trap Palpation Findings Soft Tissue Tightness Muscle Guarding Tenderness Trigger Point PT-OP-K Range of Motion Start: 03/10/19 15:55 Freq: Status: Active Protocol: Document 03/10/19 11:15 DLM (Rec: 03/10/19 17:17 DLM [id number]) Cervical Spine Range of Motion Cervical Spine Active Percentage Testing Position Sitting Comments no changes in his thoracic pain with active cervical ROM, no pain reported in cervical area Lumbar Spine Range of Motion Lumbar Spine Active Percentage Testing Position Standing Flexion 60 Extension 75 Rotation Left 100 Rotation Right 90 Lateral Flexion Left 75 Lateral Flexion Right 80 ROM Limitations Pain Comments pain with right lateral flexion and right rotation, decreased thoracic movement during trunk extension, lower thoracic rotates right during trunk flexion, decreased thoracic spinal joint movements observed during left thoracic lateral flexion Shoulder Goniometric Range of Motion Shoulder Measured in Degrees Left Active Shoulder ROM WFL No Testing Position Sitting Flexion 110 Right Active Shoulder ROM WFL Yes Shoulder ROM Limitations Shoulder ROM Limitations Soft Tissue Tightness Comments hx of shoulder pain and injury , shoulder pain resolved with physical therapy PT-OP-M Strength Start: 03/10/19 15:55 Freq: Status: Active Protocol: Document 03/10/19 11:15 DLM (Rec: 03/10/19 17:17 DLM [id number]) Trunk Strength Trunk Manual Muscle Testing Testing Position Sitting Flexion 5 Normal Extension 4 Good Rotation Left 4+ Good+ Rotation Right 4+ Good+ Lateral Flexion Left 4+ Good+ Lateral Flexion Right 4+ Good+ Comments tested isometrically in sitting PT-OP-Q Treatments Start: 03/10/19 15:55 Freq: Status: Active Protocol: Document 03/26/19 11:15 DLM (Rec: 03/26/19 19:35 DL [id number]) Cardio Equipment Recumbent Stepper (Sci-Fit) Duration (Minutes) 6 Resistance level 2 Seat Position 13 Other UE and LE Therapeutic Exercises Supine Exercises 2 Supine Exercise Name Hooklying lower trunk rotation stretch Side bilateral Reps/Minutes 3 reps 1 Supine Exercise Name Foam roll postural stretch Resistance caution for shoulder pain Equipment Used needs pillow under head, can not lie flat Reps/Minutes 5 min Comments UE's at side and over-head stretch Prone Exercises 1 Prone Exercise Name scap retraction with shoulder extension Side bilateral Resistance active Equipment Used red therapy ball Reps/Minutes 10 reps Other Exercises 2 Other Exercise Name Quadruped prayer stretch Reps/Minutes x 3 reps 1 Other Exercise Name Quadruped cat/camel Reps/Minutes x 5 reps Manual Therapy Treatment Soft Tissue Mobilization thoracic paraspinals Body Location posterior thoracic Mobilization Type Myofascial Release Rolling Sustained Pressure Intensity/Depth Moderate Body Position Prone Joint Mobilizations 1 Joint thoracic spine Direction P-A glides Grade II Body Position Prone Reps/Duration 2 sets Taping 1 Type of Tape Kinesio Tape Skin Inspection intact Comments removed tape today, replace next visit PT-OP-R Modalities Start: 03/10/19 15:55 Freq: Status: Active Protocol: Document 03/26/19 11:15 DLM (Rec: 03/26/19 19:35 DLM [id number]) Electric Stimulation Electric Stimulation Interferential Current (IFC) Body Location thoracic area Duration (Minutes) 15 Target/Sweep Target Patient Position Prone Combined With Heat/Cold Hot Pack PT-OP-T Assessment and Plan Start: 03/10/19 15:55 Freq: Status: Active Protocol: Document 03/26/19 11:15 DLM (Rec: 03/26/19 19:35 DLM [id number]) Physical Therapy Assessment Goals Five Impairment Impaired trunk strength Ground Systems Engineer Goal (LTG) Increase trunk strength to 5/5 LTG Duration 8 weeks Four Impairment Impaired Posture Short Term Goal (STG) Patient will demonstrate erect posture STG Duration 4 weeks Detention Goal (LTG) Patient will be able to maintain erect posture in sitting and standing LTG Duration 8 weeks Three Impairment Pain getting out of bed Short Term Goal (STG) Decrease episodes of severe pain getting out of bed will decrease to once a week STG Duration 4 weeks Detention Goal (LTG) Resolve episodes of severe pain when getting out of bed. LTG Duration 8 weeks Two Impairment Trunk ROM limitations Short Term Goal (STG) Increase his active Trunk ROM to WNL without increased pain STG Duration 4 weeks One Impairment Pain Short Term Goal (STG) Decrease his worst pain to 6/ 10 STG Duration 4 weeks Detention Goal (LTG) Decrease his worst pain to 3/ 10 LTG Duration 8 weeks Assessment Summary Assessment He had more difficulty with foam roll stretches by doing it first today. Pt having catching in his back with all positional changes on the mat table. Pt has difficulty determining what parts of treatment are helpful. Physical Therapy Plan Frequency and Duration Frequency of Treatment 2x/Week Duration of Treatment 8 weeks Plan of Care Start Date 03/10/19 Plan of Care End Date 05/05/19 Therapeutic Interventions Therapeutic Interventions Home Exercise Program Joint Mobilizations Manual Therapy Patient/Caregiver Education Self-Care/Home Management Soft Tissue Mobilization Taping Therapeutic Activities Therapeutic Exercises Modalities Cold Pack/Ice Massage Electric Stimulation Hot Packs Ultrasound Next Visit Focus/Plan Next Note Type Treatment Note Next Visit Plan continue to slowly advance exercises, assess response to Estim
--- NOTE | 2019-03-31 13:45 | PT.OTN ---
Current Diagnoses Pain in thoracic spine (03/31/19) Physical Therapy Treatment Note PT-OP-A Visit Information Start: 03/10/19 15:55 Freq: Status: Active Protocol: Document 03/31/19 13:45 DLM (Rec: 03/31/19 14:36 DLM [id number]) Out-Patient Physical Therapy Visit Information Visit Information Visit Type Treatment Note Visit Start Time 13:45 Visit Stop Time 14:40 Total Visit Minutes 55 Visit Number 6 Number of STILL OPERATOR Visits 0 Evaluation Information Evaluation Date 03/10/19 PT-OP-B Current Condition Start: 03/10/19 15:55 Freq: Status: Active Protocol: Document 03/10/19 11:15 DLM (Rec: 03/10/19 17:17 DLM [id number]) Current Condition History of Current Condition Onset Date 6-7 months ago Current Complaints mid-back pain History of Current Condition He reports about 6-7 months ago he started having increased back pain for no know reason. He is ok during the day but when he tries to get up he can get severe spasms that are so severe he can not get to his feet. He lies back down and rests and then he can usually get up later in the day. The length of the rest is as short as 5- 10 sec or as long as a couple of hours. His pain tends to be worse after work. He mostly sleeps on his sides and prefers a firm mattress. 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 Baseline Function- Recreation/Hobbies Reads, walks dog Baseline Function- Other hx of falls at work Current Functional Impairments (Reported) Functional Limitations- ADL's Independent with modifications to avoid pain Functional Limitations- Mobility/Gait Independent without device, he is careful to avoid pain Functional Limitations- Work/School working 3-4 hours/day, careful to avoid pain Functional Limitations- Recreation/ continues to read and walk dog Hobbies Functional Limitations- Other not sleeping that well, gets up 4-5 times per night Personal Factors Other Personal Factors That May Effect lives alone on [facility], Therapy/Recovery is PT-OP-C Subjective Start: 03/10/19 15:55 Freq: Status: Active Protocol: Document 03/31/19 13:45 DLM (Rec: 03/31/19 14:36 DLM [id number]) OP-PT Subjective Patient Comments Patient Comments He is sore and tired today. He is not sure why. He cleaned the garage yesterday but had no increased pain at the time. Patient Reported Progress Same OP-PT Pain Assessment Location Upper Posterior Back Intensity 8 Scale Used Numeric (1 - 10) PT-OP-F Manual Assessment Start: 03/10/19 15:55 Freq: Status: Active Protocol: Document 03/10/19 11:15 DLM (Rec: 03/10/19 17:17 DLM [id number]) Manual Assessments Soft Tissue Assessment Soft Tissue Mobility Assessment myofascial tightness bilateral thoracic paraspinal areas, soft tissue thickening noted PT-OP-G Mobility & Gait Start: 03/10/19 15:55 Freq: Status: Active Protocol: Document 03/10/19 11:15 DLM (Rec: 03/10/19 17:17 DLM [id number]) OP Mobility Evaluation Bed Mobility Rolling Independent with pain Supine to and from Sit Independent with pain PT-OP-J Posture/Palpation/Skin Start: 03/10/19 15:55 Freq: Status: Active Protocol: Document 03/10/19 11:15 DLM (Rec: 03/10/19 17:17 DLM [id number]) Posture Evaluation Position Sitting Evaluation View Anterior Head/C-Spine Posture Flexed Forward Head Shoulder Posture (R) Elevated Scapula Posture (L) Winged Arm Posture (L) Neutral (R) Neutral Pelvis Posture Posterior Tilted Comments Posture Comments mild functional thoracic S shaped scoliosis in thoracic spine in sitting/standing that resolves in prone Palpation Assessment Location Lumbar Paraspinal Palpation Location right Palpation Findings Soft Tissue Tightness Spasm Palpation Details L1-3 area, no pain reported Right Upper Trapezius Palpation Location Right upper trap Palpation Findings Soft Tissue Tightness Muscle Guarding Tenderness Trigger Point PT-OP-K Range of Motion Start: 03/10/19 15:55 Freq: Status: Active Protocol: Document 03/10/19 11:15 DLM (Rec: 03/10/19 17:17 DLM [id number]) Cervical Spine Range of Motion Cervical Spine Active Percentage Testing Position Sitting Comments no changes in his thoracic pain with active cervical ROM, no pain reported in cervical area Lumbar Spine Range of Motion Lumbar Spine Active Percentage Testing Position Standing Flexion 60 Extension 75 Rotation Left 100 Rotation Right 90 Lateral Flexion Left 75 Lateral Flexion Right 80 ROM Limitations Pain Comments pain with right lateral flexion and right rotation, decreased thoracic movement during trunk extension, lower thoracic rotates right during trunk flexion, decreased thoracic spinal joint movements observed during left thoracic lateral flexion Shoulder Goniometric Range of Motion Shoulder Measured in Degrees Left Active Shoulder ROM WFL No Testing Position Sitting Flexion 110 Right Active Shoulder ROM WFL Yes Shoulder ROM Limitations Shoulder ROM Limitations Soft Tissue Tightness Comments hx of shoulder pain and injury , shoulder pain resolved with physical therapy PT-OP-M Strength Start: 03/10/19 15:55 Freq: Status: Active Protocol: Document 03/10/19 11:15 DLM (Rec: 03/10/19 17:17 DLM [id number]) Trunk Strength Trunk Manual Muscle Testing Testing Position Sitting Flexion 5 Normal Extension 4 Good Rotation Left 4+ Good+ Rotation Right 4+ Good+ Lateral Flexion Left 4+ Good+ Lateral Flexion Right 4+ Good+ Comments tested isometrically in sitting PT-OP-Q Treatments Start: 03/10/19 15:55 Freq: Status: Active Protocol: Document 03/31/19 13:45 DLM (Rec: 03/31/19 14:36 DLM [id number]) Cardio Equipment Recumbent Elliptical ([employer]) Duration (Minutes) 6 Resistance 3 Therapeutic Exercises Supine Exercises 2 Supine Exercise Name Hooklying lower trunk rotation stretch Side bilateral Reps/Minutes 3 reps 1 Supine Exercise Name Foam roll postural stretch Resistance caution for shoulder pain Equipment Used needs pillow under head, can not lie flat Reps/Minutes 5 min Comments UE's at side and over-head stretch Prone Exercises 2 Prone Exercise Name horizontal abduction with scap retraction Side bilateral Resistance active Equipment Used red therapy ball Reps/Minutes x 10 reps 1 Prone Exercise Name scap retraction with shoulder extension Side bilateral Resistance active Equipment Used red therapy ball Reps/Minutes 10 reps Sitting Exercises 2 Sitting Exercise Name scapular pinches Side bilateral Reps/Minutes 10 reps 1 Sitting Exercise Name posterior shoulder rolls Side bilateral Reps/Minutes 10 reps Other Exercises 2 Other Exercise Name Quadruped prayer stretch Reps/Minutes x 3 reps 1 Other Exercise Name Quadruped cat/camel Reps/Minutes x 5 reps Manual Therapy Treatment Taping 1 Body Location thoracic area Treatment Focus posture and spinal support Type of Tape Kinesio Tape Skin Inspection intact Comments two long strips each side of spine and one horizontal at T10 PT-OP-R Modalities Start: 03/10/19 15:55 Freq: Status: Active Protocol: Document 03/31/19 13:45 DLM (Rec: 03/31/19 14:36 DLM [id number]) Electric Stimulation Electric Stimulation Interferential Current (IFC) Body Location thoracic area Duration (Minutes) 15 Target/Sweep Target Patient Position Prone Combined With Heat/Cold Hot Pack PT-OP-T Assessment and Plan Start: 03/10/19 15:55 Freq: Status: Active Protocol: Document 03/31/19 13:45 DLM (Rec: 03/31/19 17:24 DLM [id number]) Physical Therapy Assessment Goals Five Impairment Impaired trunk strength Usp Goal (LTG) Increase trunk strength to 5/5 LTG Duration 8 weeks Four Impairment Impaired Posture Short Term Goal (STG) Patient will demonstrate erect posture STG Duration 4 weeks Sign Installer Goal (LTG) Patient will be able to maintain erect posture in sitting and standing LTG Duration 8 weeks Three Impairment Pain getting out of bed Short Term Goal (STG) Decrease episodes of severe pain getting out of bed will decrease to once a week STG Duration 4 weeks Sign Installer Goal (LTG) Resolve episodes of severe pain when getting out of bed. LTG Duration 8 weeks Two Impairment Trunk ROM limitations Short Term Goal (STG) Increase his active Trunk ROM to WNL without increased pain STG Duration 4 weeks One Impairment Pain Short Term Goal (STG) Decrease his worst pain to 6/ 10 STG Duration 4 weeks Sign Installer Goal (LTG) Decrease his worst pain to 3/ 10 LTG Duration 8 weeks Progress Towards Goals Progress Towards Goals Slow Progress - Other Assessment Summary Assessment Better doing Recumbent stepper before stretches. Pt appears more stiff over-all today with flexed posture. This may be related to pt cleaning his garage yesterday with a lot of forward bending. Intermittent pain with exercises. Pt is not sure if the Estim helps or not but want to continue to use it in treatment. Pt unable to verbalize that anything is helping. Pt quiet and withdrawn today. Assess response to change in taping next visit. Physical Therapy Plan Frequency and Duration Frequency of Treatment 2x/Week Duration of Treatment 8 weeks Plan of Care Start Date 03/10/19 Plan of Care End Date 05/05/19 Therapeutic Interventions Therapeutic Interventions Home Exercise Program Joint Mobilizations Manual Therapy Patient/Caregiver Education Self-Care/Home Management Soft Tissue Mobilization Taping Therapeutic Activities Therapeutic Exercises Modalities Cold Pack/Ice Massage Electric Stimulation Hot Packs Ultrasound Next Visit Focus/Plan Next Note Type Treatment Note Next Visit Plan continue to slowly advance exercises, assess trunk AROM
--- NOTE | 2019-04-07 15:27 | PT.OTN ---
Current Diagnoses Pain in thoracic spine (04/07/19) Physical Therapy Treatment Note PT-OP-A Visit Information Start: 03/10/19 15:55 Freq: Status: Active Protocol: Document 04/07/19 15:17 SA (Rec: 04/07/19 15:26 SA [email or web address]) Out-Patient Physical Therapy Visit Information Visit Information Visit Type Treatment Note Visit Start Time 13:00 Visit Stop Time 13:55 Total Visit Minutes 55 Visit Number 7 Number of EXPLOSIVES OPERATOR Visits 1 PT-OP-B Current Condition Start: 03/10/19 15:55 Freq: Status: Active Protocol: Document 03/10/19 11:15 DLM (Rec: 03/10/19 17:17 DLM [id number]) Current Condition History of Current Condition Onset Date 6-7 months ago Current Complaints mid-back pain History of Current Condition He reports about 6-7 months ago he started having increased back pain for no know reason. He is ok during the day but when he tries to get up he can get severe spasms that are so severe he can not get to his feet. He lies back down and rests and then he can usually get up later in the day. The length of the rest is as short as 5- 10 sec or as long as a couple of hours. His pain tends to be worse after work. He mostly sleeps on his sides and prefers a firm mattress. 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 Baseline Function- Recreation/Hobbies Reads, walks dog Baseline Function- Other hx of falls at work Current Functional Impairments (Reported) Functional Limitations- ADL's Independent with modifications to avoid pain Functional Limitations- Mobility/Gait Independent without device, he is careful to avoid pain Functional Limitations- Work/School working 3-4 hours/day, careful to avoid pain Functional Limitations- Recreation/ continues to read and walk dog Hobbies Functional Limitations- Other not sleeping that well, gets up 4-5 times per night Personal Factors Other Personal Factors That May Effect lives alone on [facility], Therapy/Recovery is PT-OP-C Subjective Start: 03/10/19 15:55 Freq: Status: Active Protocol: Document 04/07/19 15:17 SA (Rec: 04/07/19 15:26 SA [id number]) OP-PT Subjective Patient Comments Patient Comments Pt reports having a rough night last night, sleep interupted with muscle spasm and pain. PT-OP-F Manual Assessment Start: 03/10/19 15:55 Freq: Status: Active Protocol: Document 03/10/19 11:15 DLM (Rec: 03/10/19 17:17 DLM [id number]) Manual Assessments Soft Tissue Assessment Soft Tissue Mobility Assessment myofascial tightness bilateral thoracic paraspinal areas, soft tissue thickening noted PT-OP-G Mobility & Gait Start: 03/10/19 15:55 Freq: Status: Active Protocol: Document 03/10/19 11:15 DLM (Rec: 03/10/19 17:17 DLM [id number]) OP Mobility Evaluation Bed Mobility Rolling Independent with pain Supine to and from Sit Independent with pain PT-OP-J Posture/Palpation/Skin Start: 03/10/19 15:55 Freq: Status: Active Protocol: Document 03/10/19 11:15 DLM (Rec: 03/10/19 17:17 DLM [id number]) Posture Evaluation Position Sitting Evaluation View Anterior Head/C-Spine Posture Flexed Forward Head Shoulder Posture (R) Elevated Scapula Posture (L) Winged Arm Posture (L) Neutral (R) Neutral Pelvis Posture Posterior Tilted Comments Posture Comments mild functional thoracic S shaped scoliosis in thoracic spine in sitting/standing that resolves in prone Palpation Assessment Location Lumbar Paraspinal Palpation Location right Palpation Findings Soft Tissue Tightness Spasm Palpation Details L1-3 area, no pain reported Right Upper Trapezius Palpation Location Right upper trap Palpation Findings Soft Tissue Tightness Muscle Guarding Tenderness Trigger Point PT-OP-K Range of Motion Start: 03/10/19 15:55 Freq: Status: Active Protocol: Document 03/10/19 11:15 DLM (Rec: 03/10/19 17:17 DLM [id number]) Cervical Spine Range of Motion Cervical Spine Active Percentage Testing Position Sitting Comments no changes in his thoracic pain with active cervical ROM, no pain reported in cervical area Lumbar Spine Range of Motion Lumbar Spine Active Percentage Testing Position Standing Flexion 60 Extension 75 Rotation Left 100 Rotation Right 90 Lateral Flexion Left 75 Lateral Flexion Right 80 ROM Limitations Pain Comments pain with right lateral flexion and right rotation, decreased thoracic movement during trunk extension, lower thoracic rotates right during trunk flexion, decreased thoracic spinal joint movements observed during left thoracic lateral flexion Shoulder Goniometric Range of Motion Shoulder Left Active Shoulder ROM WFL No Testing Position Sitting Flexion 110 Right Active Shoulder ROM WFL Yes Shoulder ROM Limitations Shoulder ROM Limitations Soft Tissue Tightness Comments hx of shoulder pain and injury , shoulder pain resolved with physical therapy PT-OP-M Strength Start: 03/10/19 15:55 Freq: Status: Active Protocol: Document 03/10/19 11:15 DLM (Rec: 03/10/19 17:17 DLM [id number]) Trunk Strength Trunk Manual Muscle Testing Testing Position Sitting Flexion 5 Normal Extension 4 Good Rotation Left 4+ Good+ Rotation Right 4+ Good+ Lateral Flexion Left 4+ Good+ Lateral Flexion Right 4+ Good+ Comments tested isometrically in sitting PT-OP-Q Treatments Start: 03/10/19 15:55 Freq: Status: Active Protocol: Document 04/07/19 15:17 SA (Rec: 04/07/19 15:26 SA [email or web address]) Cardio Equipment Recumbent Stepper ([employer]) Duration (Minutes) 6 Resistance 2 Seat Position 13 Other UE and LE Therapeutic Exercises Supine Exercises 2 Supine Exercise Name Hooklying lower trunk rotation stretch Side bilateral Reps/Minutes 3 min 1 Supine Exercise Name Foam roll postural stretch Resistance caution for shoulder pain Equipment Used needs pillow under head, can not lie flat Reps/Minutes 5 min Comments UE's at side and over-head stretch Prone Exercises 2 Prone Exercise Name horizontal abduction with scap retraction Side bilateral Resistance active Equipment Used red therapy ball Reps/Minutes x 10 reps 1 Prone Exercise Name scap retraction with shoulder extension Side bilateral Resistance active Equipment Used red therapy ball Reps/Minutes 10 reps Sitting Exercises 2 Sitting Exercise Name scapular pinches Side bilateral Reps/Minutes 15x 1 Sitting Exercise Name posterior shoulder rolls Side bilateral Reps/Minutes 10 reps Other Exercises 2 Other Exercise Name Quadruped prayer stretch Reps/Minutes x 3 reps 1 Other Exercise Name Quadruped cat/camel Reps/Minutes x 5 reps Manual Therapy Treatment Soft Tissue Mobilization thoracic paraspinals Body Location posterior thoracic Mobilization Type Myofascial Release Rolling Sustained Pressure Intensity/Depth Moderate Body Position Prone Joint Mobilizations 1 Joint thoracic spine Direction P-A glides Grade II Body Position Prone PT-OP-R Modalities Start: 03/10/19 15:55 Freq: Status: Active Protocol: Document 04/07/19 15:17 SA (Rec: 04/07/19 15:26 SA [email or web address]) Electric Stimulation Electric Stimulation Interferential Current (IFC) Body Location thoracic area Duration (Minutes) 15 Target/Sweep Target Patient Position Prone Combined With Heat/Cold Hot Pack PT-OP-T Assessment and Plan Start: 03/10/19 15:55 Freq: Status: Active Protocol: Document 04/07/19 15:17 SA (Rec: 04/07/19 15:26 SA [email or web address]) Physical Therapy Assessment Assessment Summary Assessment Pt with forward flexed posture and rigid thoracic spine, very guarded. Responded well to stretching and STM. Postural exercise difficult. Physical Therapy Plan Next Visit Focus/Plan Next Note Type Treatment Note Next Visit Plan continue to slowly advance exercises, assess trunk AROM
--- NOTE | 2019-04-10 15:12 | PT.OTN ---
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 He is ok during the day but when he tries to get up he can get severe spasms that are so severe he can not get to his feet. He lies back down and rests and then he can usually get up later in the day. The length of the rest is as short as 5- 10 sec or as long as a couple of hours. His pain tends to be worse after work. He mostly sleeps on his sides and prefers a firm mattress. 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 Baseline Function- Recreation/Hobbies Reads, walks dog Baseline Function- Other hx of falls at work Current Functional Impairments (Reported) Functional Limitations- ADL's Independent with modifications to avoid pain Functional Limitations- Mobility/Gait Independent without device, he is careful to avoid pain Functional Limitations- Work/School working 3-4 hours/day, careful to avoid pain Functional Limitations- Recreation/ continues to read and walk dog Hobbies Functional Limitations- Other not sleeping that well, gets up 4-5 times per night Personal Factors Other Personal Factors That May Effect lives alone on [facility], Therapy/Recovery is PT-OP-C Subjective Start: 03/10/19 15:55 Freq: Status: Active Protocol: Document 04/10/19 14:30 DCW (Rec: 04/10/19 15:10 DCW [id number]) OP-PT Subjective Patient Comments Patient Comments Pt feels he has not made any progress, and there has been no change in his symptoms since beginning therapy one month ago. Patient Reported Progress Same PT-OP-F Manual Assessment Start: 03/10/19 15:55 Freq: Status: Active Protocol: Document 04/10/19 14:30 DCW (Rec: 04/10/19 15:12 DCW [id number]) Manual Assessments Soft Tissue Assessment Soft Tissue Mobility Assessment myofascial tightness bilateral thoracic paraspinal areas, soft tissue thickening noted PT-OP-G Mobility & Gait Start: 03/10/19 15:55 Freq: Status: Active Protocol: Document 03/10/19 11:15 DLM (Rec: 03/10/19 17:17 DLM [id number]) OP Mobility Evaluation Bed Mobility Rolling Independent with pain Supine to and from Sit Independent with pain PT-OP-J Posture/Palpation/Skin Start: 03/10/19 15:55 Freq: Status: Active Protocol: Document 04/10/19 14:30 DCW (Rec: 04/10/19 15:12 DCW [id number]) Posture Evaluation Position Sitting Evaluation View Anterior Head/C-Spine Posture Flexed Forward Head Shoulder Posture (R) Elevated Scapula Posture (L) Winged Arm Posture (L) Neutral (R) Neutral Pelvis Posture Posterior Tilted PT-OP-K Range of Motion Start: 03/10/19 15:55 Freq: Status: Active Protocol: Document 04/10/19 14:30 DCW (Rec: 04/10/19 15:12 DCW [id number]) Lumbar Spine Range of Motion Lumbar Spine Active Percentage Testing Position Standing Flexion 60 Extension 75 Rotation Left 100 Rotation Right 90 Lateral Flexion Left 75 Lateral Flexion Right 80 ROM Limitations Pain Comments pain with right lateral flexion and right rotation, decreased thoracic movement during trunk extension, lower thoracic rotates right during trunk flexion, decreased thoracic spinal joint movements observed during left thoracic lateral flexion PT-OP-M Strength Start: 03/10/19 15:55 Freq: Status: Active Protocol: Document 03/10/19 11:15 DLM (Rec: 03/10/19 17:17 DLM [id number]) Trunk Strength Trunk Manual Muscle Testing Testing Position Sitting Flexion 5 Normal Extension 4 Good Rotation Left 4+ Good+ Rotation Right 4+ Good+ Lateral Flexion Left 4+ Good+ Lateral Flexion Right 4+ Good+ Comments tested isometrically in sitting PT-OP-Q Treatments Start: 03/10/19 15:55 Freq: Status: Active Protocol: Document 04/10/19 14:30 DCW (Rec: 04/10/19 15:10 DCW [id number]) Cardio Equipment Recumbent Stepper (Sci-Fit) Duration (Minutes) 6 Resistance 2 Seat Position 10 Other UE and LE Gym Equipment Therapeutic Ball Lumbar Rotation Exercise Details Lumbar rotation vs T-band resistance Ball Size/Color Green - 65 cm Lv 3 T-band Body Position Sitting Therapeutic Exercises Prone Exercises 2 Prone Exercise Name horizontal abduction with scap retraction Side bilateral Resistance active Equipment Used red therapy ball Reps/Minutes x 10 reps 1 Prone Exercise Name scap retraction with shoulder extension Side bilateral Resistance active Equipment Used red therapy ball Reps/Minutes 10 reps Standing Exercises Pec stretch Standing Exercise Name Corner stretch Posture stretch against wall Standing Exercise Name Posture stretch Manual Therapy Treatment Soft Tissue Mobilization thoracic paraspinals Body Location posterior thoracic Mobilization Type Myofascial Release Rolling Sustained Pressure Intensity/Depth Moderate Body Position Prone Joint Mobilizations 1 Joint thoracic spine Direction P-A glides Grade II Body Position Prone PT-OP-R Modalities Start: 03/10/19 15:55 Freq: Status: Active Protocol: Document 04/07/19 15:17 SA (Rec: 04/07/19 15:26 SA [id number]) Electric Stimulation Electric Stimulation Interferential Current (IFC) Body Location thoracic area Duration (Minutes) 15 Target/Sweep Target Patient Position Prone Combined With Heat/Cold Hot Pack PT-OP-T Assessment and Plan Start: 03/10/19 15:55 Freq: Status: Active Protocol: Document 04/10/19 14:30 DCW (Rec: 04/10/19 15:10 DCW [id number]) Physical Therapy Assessment Goals Five Impairment Impaired trunk strength Fdc Goal (LTG) Increase trunk strength to 5/5 LTG Duration 8 weeks Four Impairment Impaired Posture Short Term Goal (STG) Patient will demonstrate erect posture STG Duration 4 weeks Fdc Goal (LTG) Patient will be able to maintain erect posture in sitting and standing LTG Duration 8 weeks Three Impairment Pain getting out of bed Short Term Goal (STG) Decrease episodes of severe pain getting out of bed will decrease to once a week STG Duration 4 weeks Torch Straightener Goal (LTG) Resolve episodes of severe pain when getting out of bed. LTG Duration 8 weeks Two Impairment Trunk ROM limitations Short Term Goal (STG) Increase his active Trunk ROM to WNL without increased pain STG Duration 4 weeks One Impairment Pain Short Term Goal (STG) Decrease his worst pain to 6/ 10 STG Duration 4 weeks Torch Straightener Goal (LTG) Decrease his worst pain to 3/ 10 LTG Duration 8 weeks Assessment Summary Assessment Pt has not made any progress over the past month, feels like therapy has not been helpful. With this being his last scheduled visit, pt would prefer to discharge and return to his referring physician to determine other options. Physical Therapy Plan Frequency and Duration Frequency of Treatment 2x/Week Duration of Treatment 8 weeks Plan of Care Start Date 03/10/19 Plan of Care End Date 05/05/19 Therapeutic Interventions Therapeutic Interventions Home Exercise Program Joint Mobilizations Manual Therapy Patient/Caregiver Education Self-Care/Home Management Soft Tissue Mobilization Taping Therapeutic Activities Therapeutic Exercises Modalities Cold Pack/Ice Massage Electric Stimulation Hot Packs Ultrasound Discharge Physical Therapy Discharge Reasons Patient Request Next Visit Focus/Plan Next Note Type Discharge Summary
== END 2019-04-16 11:47 | disposition home or self-care (01) ==
LOC: PHYS 14:30
PROVIDERS: Family Provider Family Medicine; PCP Family Medicine; Visit Provider Nurse Practitioner
DX: M54.6 Pain in thoracic spine (principal)
CPT/HCPCS: 97010; 97014; 97110; 97140; 97162; G0283

== ENCOUNTER → 2021-05-30 12:11 | Outpatient (CLI) | payer MEDICARE, MEDICAID, SELFPAY ==
[2021-05-30 13:22] LABS: COVID19 -Nasal RAPID Negative (Negative)
[2021-05-30 13:26] LABS: Hematocrit 46.9 % (41-53); Hemoglobin 16.5 g/dL (13.5-17.5); Mean Corpuscular HGB Conc 35.2 % (30-36); Mean Corpuscular Hemoglobin 34.3 PG (26-34); Mean Corpuscular Volume 97.4 fL (80-100); Platelet Count 184 X10^3/uL (150-400); Red Blood Cell Count 4.81 X10^6/uL (4.5-5.9); Red Cell Distribution Width 12.9 % (11.6-14.8); White Blood Cell Count 6.6 X10^3/uL (4.5-11.0)
[2021-05-30 13:42] LABS: Neutrophils Absolute Manual 4290 /uL (3000-5900); Total Cells Counted 100
[2021-05-30 13:43] LABS: RBC Morphology Normal Morphology
[2021-05-30 14:03] LABS: Alanine Aminotransferase 18 IU/L (<50); Albumin 4.2 g/dL (3.5-5.0); Albumin Globulin Ratio 1.3 (1.0-2.8); Alkaline Phosphatase 55 U/L (38-126); Aspartate Aminotransferase 23 IU/L (17-59); BUN Creatinine Ratio 13.6 (6-22); Bilirubin Total 0.8 mg/dL (0.2-1.3); Blood Urea Nitrogen 15 mg/dL (9-20); Calcium 9.4 mg/dL (8.4-10.2); Carbon Dioxide 28 mmol/L (22-32); Chloride 105 mmol/L (98-107); Estimated Glomerular Filt Rate > 60.0 mL/min (>60); Globulin 3.3 g/dL (1.7-4.1); Glucose 99 mg/dL (80-110); HEMOLYSIS < 15 (0-50); Lipase 21 U/L (23-300); Potassium 4.1 mmol/L (3.4-5.1); Sodium 139 mmol/L (137-145); Total Protein 7.5 g/dL (6.3-8.2)
[2021-05-30 17:30] LABS: Adenovirus F 40/41 Not Detected (Not Detect); Astrovirus Not Detected (Not Detect); Campylobacter Not Detected (Not Detect); Clostridium difficile toxin AB Not Detected (Not Detect); Cryptosporidium Not Detected (Not Detect); Cyclospora cayetanensis Not Detected (Not Detect); Entamoeba histolytica Not Detected (Not Detect); Enteroaggregative E.coli Not Detected (Not Detect); Enteropathogenic E.coli Not Detected (Not Detect); Enterotoxigenic E.coli It/st Not Detected (Not Detect); Giardia lamblia Not Detected (Not Detect); Norovirus GI/GII Not Detected (Not Detect); Plesiomonsa shigelloides Not Detected (Not Detect); Rotavirus A Not Detected (Not Detect); Salmonella Not Detected (Not Detect); Sapovirus Not Detected (Not Detect); Shiga-like toxin-prod E.coli Not Detected (Not Detect); Shigella/Enteroinvasive E.coli Not Detected (Not Detect); Vibrio Not Detected (Not Detect); Vibrio cholerae Not Detected (Not Detect); Yersinia enterocolitica Not Detected (Not Detect)
== END ==
PROVIDERS: Family Provider Family Medicine; PCP Family Medicine; Referring Provider Nurse Practitioner; Visit Provider Nurse Practitioner
DX: R19.7 Diarrhea, unspecified (principal); Z20.822 Contact with and (suspected) exposure to COVID-19; R10.9 Unspecified abdominal pain
CPT/HCPCS: 36415; 80053; 83690; 85025; 87507; 87635